=== PATIENT | female | born 1990 | race African-American/Black ===

== ENCOUNTER 2021-10-27 12:12 | Emergency (ER) | payer BC ==
--- OUTSIDE RECORDS SUMMARY | 2021-10-27 12:19 | XMS REPORT | Continuity of Care Document ---
:1990 Author Organization [facility] t Address [address] [place] [address] Care Team Providers Name Role Phone PCP, DOES NOT HAVE A Primary Care Physician Unavailable JOSHUA Attending Clinician Unavailable Joshua DIEZ Attending Clinician Doctor Unassigned, Name Attending Clinician Unavailable Attending Clinician Unavailable Singer SALINAS Attending Clinician TRA BUCHANAN Attending Clinician Unavailable Tra Kerr Attending Clinician Karuna NGUYEN Attending Clinician Unavailable Karuna Greco Attending Clinician Toya NIEVES Attending Clinician Unavailable Toya Nieves MD Attending Clinician Iraida ANTUNEZ Attending Clinician Unavailable Iraida Driver Attending Clinician Toya NIEVES Admitting Clinician Unavailable Payers Payer Name Policy Type Policy Number Effective Date Expiration Date Toya aragon MEDICAID PENDING PENDING 2021 00:00:00 [place] [id number] 2017 WOMEN 00:00:00 Problems Condition Condition Condition Status Onset Resolution Last Treating Co mments Source Name Details Category Date Date Treatment Clinician Date Disease Active 2010-05 Overview: Un frances delivery delivery 0-28 Formattin ity of delivered delivered 00:00: g of this [place] 00 note Medical might be Branch different from the original. 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 Utility Allergies, Adverse Reactions, Alerts Allergy Allergy Status Severity Reaction(s) Onset Inactive Treating Comm ents Source Name Type Date Date Clinician NO KNOWN Drug Active Univers ALLERGIE Class ity of [facility] Social History Social Habit Start Date Stop Date Quantity Comments Source Exposure to 2021-09-26 2021-10-06 Not sure [facility] SARS-CoV-2 (event) 00:00:00 02:55:00 Medica l Branch Tobacco use and 2021-01-14 2021-01-14 Never used [facility] exposure 00:00:00 00:00:00 [facility] Branch Sex Ass[birth year] At [birth year] [facility] 00:00:00 00:00:00 Medical Branch Smoking Status Start Date Stop Date Source Never smoker [facility] Medications Ordered Filled Start Stop Current Ordering Indication Dosage Frequency Signature Comments Components Source Medication Medication Date Date Medication? Clinician (SIG) Name Name cefTRIAXone 2021- No 1000mg 1,000 mg, Univers (ROCEPHIN) 10-06 IV ity of 1,000 mg in 10:45: 10:31 Piggyback, [place] NaCl 0.9% 00 :00 ONCE, 1 Medical (NS) 50 mL dose, On Bran h MINI-BAG 10/06/21 at 0545, Administer over 30 Minutes, 50 mL
Reas on for Anti-Infec tive: Documented Infection< br>Documen chad Infection Site: Urine<br&g t;Duration of Therapy: Other (see Comments) metoclopram 2021- No 10mg 10 mg, Uni vers daphne HCl 10-06 Slow IV ity of (REGLAN) 09:15: 08:32 Push, [place] injection 00 :00 ONCE, 1 Medical 10 mg dose, On Branch 10/06/21 at 0415, PETER NaCl 0.9% 2021- No 1000mL at 999 Uni vers (NS) bolus 5-18 05-18 mL/hr, ity of infusion 09:15: 10:31 1,000 mL, [place] as 1,000 mL 00 :00 IV Medical Infusion, Branch ONCE, 1 dose, On 10/06/21 at 0415, PETER metoclopram 0 Yes [id number] 10mg Take 1 Univers daphen HCl 10 -18 tablet by ity of mg tablet 00:00: mouth [place] 00 every 6 Medical (six) Branch hours. cephALEXin Yes [id number] 500mg Take 1 Univers (KEFLEX) 5-18 capsule by ity o f 500 mg 00:00: mouth 3 [place] capsule 00 (three) Medical times Branch daily. benzonatate 2021- No 100mg 100 mg, U nivers (TESSALON 08-16 Oral, ity of PERLES) 05:30: 04:23 ONCE, 1 [place] capsule 100 00 :00 dose, On Medi yossi mg Mon Branch 08/16/21 at 0030, Routine ipratropium 2021- No [id number] 3mL 3 mL, U nivers -albuteroL 08-16 Inhalation it y of (DUONEB) 05:00: 04:02 , ONCE, 1 [place] as 0.5 mg-3 00 :00 dose, On Medical mg(2.5 mg Mon base)/3 mL 08/16/21 at nebulizer 0000, solution 3 Routine mL chlorphenir Yes [id number] 4mg Take 1 U nivers amine 4 mg 3-27 tablet by ity of tablet 00:00: mouth [place] 00 every 6 Medical (six) Branch hours as needed for Allergies or Runny nose. calcium/mag 0 Yes [id number] 1{each} Take 1 Univers nesium/zinc 3-27 Each by ity o f (CALCIUM-MA 00:00: mouth [place] GNESUIUM-ZI 00 daily. Medica l GA) Branch 333-133-5 mg Tab benzonatate Yes [id number] 100mg Take 1 Univers 100 mg 3-27 capsule by ity of capsule 00:00: mouth 3 [place] 00 (three) Medical times Branch daily as needed for Cough. chlorphenir Yes [id number] 4mg Take 1 U nivers amine 4 mg 3-27 tablet by ity of tablet 00:00: mouth [place] 00 every 6 Medical (six) Branch hours as needed for Allergies or Runny nose. calcium/mag Yes [id number] 1{each} Take 1 Univers nesium/zinc 3-27 Each by ity o f (CALCIUM-MA 00:00: mouth [place] GNESUIUM-ZI 00 daily. Medica l [place]) Branch 333-133-5 mg Tab benzonatate Yes [id number] 100mg Take 1 Univers 100 mg 3-27 capsule by ity of capsule 00:00: mouth 3 [place] 00 (three) Medical times Branch daily as needed for Cough. chlorphenir Yes [id number] 4mg Take 1 U nivers amine 4 mg 3-27 tablet by ity of tablet 00:00: mouth [place] 00 every 6 Medical (six) Branch hours as needed for Allergies or Runny nose. calcium/mag Yes [id number] 1{each} Take 1 Univers nesium/zinc 3-27 Each by ity o f (CALCIUM-MA 00:00: mouth [place] GNESUIUM-ZI 00 daily. Medica l GA) Branch 333-133-5 mg Tab benzonatate Yes [id number] 100mg Take 1 Univers 100 mg 3-27 capsule by ity of capsule 00:00: mouth 3 [place] 00 (three) Medical times Branch daily as needed for Cough. vitamin 2021- Yes [id number] 1{tbl} Take 1 Un frances D3-folic 3-27 -27 tablet by ity o f acid 125 00:00: 04:59 mouth [place] mcg (5,000 00 :00 daily for Medi yossi unit)-1 mg 30 days. Branc h Tab baloxavir 2021- Yes [id number] 1{each} Take 1 Univers marboxiL 3-27 03-28 Each by ity of (XOFLUZA) 00:00: 04:59 mouth once [place] 80 mg Tab 00 :00 now for 1 Medic al dose. Branch nirmatrelvi 2021- No 3{tbl} Take 3 U nivers r-ritonavir 08-15 tablets by i ty of (PAXLOVID, 00:00: 00:00 mouth 2 [place] EUA,) 300 00 :00 (two) Medical mg (150 mg times Branch x 2)-100 mg daily. tablet azithromyci 2021- No 500mg 500 mg, U nivers n 07-18 Oral, ity of (ZITHROMAX) 06:45: 05:40 ONCE, 1 [place] tablet 500 00 :00 dose, On Medic al mg Sun Branch 07/18/21 at 0045, PETER
Re ason for Anti-Infec tive: Documented Infection< br>Documen chad Infection Site: Respirator y
Durat ion of Therapy: Other (see Comments) methylpredn 2021- No 125mg 125 mg, U nivers isolone sod 07-18 Intramuscu i ty of succ 06:30: 05:33 lar, ONCE, [place] (SOLU-MEDRO 00 :00 1 dose, On Me dical L) Sun Branch injection 07/18/21 at 125 mg 0030, STAT ipratropium No 3mL 3 mL, Univ ers -albuteroL 07-18 Inhalation it y of (DUONEB) 06:30: 05:33 , ONCE, 1 [place] as 0.5 mg-3 00 :00 dose, On Medical mg(2.5 mg Sun Branch base)/3 mL 07/18/21 at nebulizer 0030, solution 3 Routine mL ipratropium Yes [id number] .5mg Inhale 2.5 Univers 0.02 % 2-26 mL every 6 ity of nebulizer 00:00: (six) [place] solution 00 hours as Medical needed for Branch Wheezing or Shortness of Breath for up to 30 doses. azithromyci 0 Yes [id number] 250mg Take 1 Univers n - tablet by ity of (ZITHROMAX 00:00: mouth [place] Z-JAIDEN) 250 00 SEE-INSTRU Med ical mg tablet CTIONS. Branch Take 500 mg day 1, then 250 mg days 2 to 5. albuterol 2022-0 Yes [id number] 2.5mg Inhale 3 Univers 2.5 mg /3 2-26 mL every 4 ity of mL (0.083 00:00: (four) [place] %) 00 hours as Medical nebulizer needed for Bran ch solution Wheezing or Shortness of Breath. ipratropium 2022-0 Yes [id number] .5mg Inhale 2.5 Univers 0.02 % 2-26 mL every 6 ity of nebulizer 00:00: (six) [place] solution 00 hours as Medical needed for Branch Wheezing or Shortness of Breath for up to 30 doses. azithromyci 2022-0 Yes [id number] 250mg Take 1 Univers n 2-26 tablet by ity of (ZITHROMAX 00:00: mouth [place] Z-JAIDEN) 250 00 SEE-INSTRU Med ical mg tablet CTIONS. Branch Take 500 mg day 1, then 250 mg days 2 to 5. albuterol 2022-0 Yes [id number] 2.5mg Inhale 3 Univers 2.5 mg /3 2-26 mL every 4 ity of mL (0.083 00:00: (four) [place] %) 00 hours as Medical nebulizer needed for Bran ch solution Wheezing or Shortness of Breath. ipratropium 2022-0 Yes [id number] .5mg Inhale 2.5 Univers 0.02 % 2-26 mL every 6 ity of nebulizer 00:00: (six) [place] solution 00 hours as Medical needed for Branch Wheezing or Shortness of Breath for up to 30 doses. azithromyci 2022-0 Yes [id number] 250mg Take 1 Univers n 2-26 tablet by ity of (ZITHROMAX 00:00: mouth [place] Z-JAIDEN) 250 00 SEE-INSTRU Med ical mg tablet CTIONS. Branch Take 500 mg day 1, then 250 mg days 2 to 5. albuterol 2022-0 Yes [id number] 2.5mg Inhale 3 Univers 2.5 mg /3 2-26 mL every 4 ity of mL (0.083 00:00: (four) [place] %) 00 hours as Medical nebulizer needed for Bran ch solution Wheezing or Shortness of Breath. ipratropium 2022-0 Yes [id number] .5mg Inhale 2.5 Univers 0.02 % 2-26 mL every 6 ity of nebulizer 00:00: (six) [place] solution 00 hours as Medical needed for Branch Wheezing or Shortness of Breath for up to 30 doses. azithromyci 0 Yes [id number] 250mg Take 1 Univers n 2-26 tablet by ity of (ZITHROMAX 00:00: mouth [place] Z-JAIDEN) 250 00 SEE-INSTRU Med ical mg tablet CTIONS. Branch Take 500 mg day 1, then 250 mg days 2 to 5. albuterol 0 Yes [id number] 2.5mg Inhale 3 Univers 2.5 mg /3 2-26 mL every 4 ity of mL (0.083 00:00: (four) [place] %) 00 hours as Medical nebulizer needed for Bran ch solution Wheezing or Shortness of Breath. albuterol 2021- No 5mg 5 mg, [facility] 06-03 Inhalation i ty of 2.5 mg /3 08:00: 07:06 , ONCE, 1 [place] mL (0.083 00 :00 dose, On Medica l %) [place] Branch nebulizer 06/03/21 at solution 5 0200, STAT mg ipratropium 2021- No 3mL 3 mL, [facility] ers -albuteroL 06-03 Inhalation it y of (DUONEB) 07:00: 06:06 , ONCE, 1 [place] 0.5 mg-3 00 :00 dose, On Medical mg(2.5 mg [facility] Branch base)/3 mL 06/03/21 at nebulizer 0100, solution 3 Routine mL predniSONE 2021- No 10mg 10 mg, [facility] ers (DELTASONE) 06-03 Oral, ity of tablet 10 07:00: 06:02 ONCE, 1 [place] mg 00 :00 dose, On Medical [place] Branch 06/03/21 at 0100, PETER ipratropium 2021-0 Yes [id number] Use 1 U nivers 0.02 % 06-03 ampule of ity of nebulizer 00:00: solution [place] solution 00 with Medical albuterol Branch solution TID. ipratropium 2021-0 Yes [id number] Use 1 U nivers 0.02 % 1-13 ampule of ity of nebulizer 00:00: solution [place] solution 00 with Medical albuterol Branch solution TID. ipratropium 2021-0 Yes [id number] Use 1 U nivers 0.02 % 1-13 ampule of ity of nebulizer 00:00: solution [place] solution 00 with Medical albuterol Branch solution TID. ipratropium 2021-0 Yes [id number] Use 1 U nivers 0.02 % 1-13 ampule of ity of nebulizer 00:00: solution [place] solution 00 with Medical albuterol Branch solution TID. ipratropium 2021-0 Yes [id number] Use 1 U nivers 0.02 % 1-13 ampule of ity of nebulizer 00:00: solution [place] solution 00 with Medical albuterol Branch solution TID. predniSONE 2021-0 2022- No [id number] 20mg Take 1 Univers 20 mg -13 -18 tablet by ity of tablet 00:00: 05:59 mouth 2 [place] 00 :00 (two) Medical times Branch daily for 4 days. ipratropium 2021-0 Yes 3mL 3 mL, Unive rs -albuteroL 1-08 Inhalation ity of (DUONEB) 14:00: , QID, [place] 0.5 mg-3 00 First dose Medic al mg(2.5 mg on Sat Branch base)/3 mL 05/29/21 at nebulizer 0800, solution 3 Until mL Discontinu ed, Routine benzonatate 2021-0 Yes [id number] 200mg Take 1 Univers 200 mg 1-08 capsule by ity of capsule 00:00: mouth 3 [place] 00 (three) Medical times Branch daily as needed for Cough. albuterol 2021-0 Yes [id number] 2{puff} Inhale 2 Univers 90 1-08 Puffs ity of mcg/actuati 00:00: every 4 [place] on inhaler 00 (four) Medical hours as Branch needed for Wheezing or Shortness of Breath. albuterol 2021-0 Yes [id number] 2.5mg Inhale 3 Univers 2.5 mg /3 1-08 mL every 4 ity of mL (0.083 00:00: (four) [place] %) 00 hours. May Medical nebulizer also Branch solution nebulize one extra every 6 hours. benzonatate 2021-0 Yes [id number] 200mg Take 1 Univers 200 mg 1-08 capsule by ity of capsule 00:00: mouth 3 [place] 00 (three) Medical times Branch daily as needed for Cough. albuterol 2021-0 Yes [id number] 2{puff} Inhale 2 Univers 90 1-08 Puffs ity of mcg/actuati 00:00: every 4 [place] on inhaler 00 (four) Medical hours as Branch needed for Wheezing or Shortness of Breath. albuterol 2021-0 Yes [id number] 2.5mg Inhale 3 Univers 2.5 mg /3 1-08 mL every 4 ity of mL (0.083 00:00: (four) [place] %) 00 hours. May Medical nebulizer also Branch solution nebulize one extra every 6 hours. benzonatate 2021-0 Yes [id number] 200mg Take 1 Univers 200 mg 1-08 capsule by ity of capsule 00:00: mouth 3 [place] 00 (three) Medical times Branch daily as needed for Cough. albuterol 2021-0 Yes [id number] 2{puff} Inhale 2 Univers 90 1-08 Puffs ity of mcg/actuati 00:00: every 4 [place] on inhaler 00 (four) Medical hours as Branch needed for Wheezing or Shortness of Breath. albuterol 2021-0 Yes [id number] 2.5mg Inhale 3 Univers 2.5 mg /3 1-08 mL every 4 ity of mL (0.083 00:00: (four) [place] %) 00 hours. May Medical nebulizer also Branch solution nebulize one extra every 6 hours. albuterol 2021-0 Yes [id number] 2{puff} Inhale 2 Univers 90 1-08 Puffs ity of mcg/actuati 00:00: every 4 [place] on inhaler 00 (four) Medical hours as Branch needed for Wheezing or Shortness of Breath. albuterol 2021-0 Yes [id number] 2.5mg Inhale 3 Univers 2.5 mg /3 1-08 mL every 4 ity of mL (0.083 00:00: (four) [place] %) 00 hours. May Medical nebulizer also Branch solution nebulize one extra every 6 hours. albuterol 2021-0 Yes [id number] 2{puff} Inhale 2 Univers 90 1-08 Puffs ity of mcg/actuati 00:00: every 4 [place] on inhaler 00 (four) Medical hours as Branch needed for Wheezing or Shortness of Breath. albuterol 0 Yes [id number] 2.5mg Inhale 3 Univers 2.5 mg /3 1-08 mL every 4 ity of mL (0.083 00:00: (four) [place] %) 00 hours. May Medical nebulizer also Branch solution nebulize one extra every 6 hours. albuterol 2021- Yes [id number] 2{puff} Inhale 2 Univers 90 1-08 Puffs ity of mcg/actuati 00:00: every 4 [place] on inhaler 00 (four) Medical hours as Branch needed for Wheezing or Shortness of Breath. albuterol Yes [id number] 2.5mg Inhale 3 Univers 2.5 mg /3 1-08 mL every 4 ity of mL (0.083 00:00: (four) [place] %) 00 hours. May Medical nebulizer also Branch solution nebulize one extra every 6 hours. benzonatate 2- No [id number] 200mg Take 1 Univers 200 mg 05-29 capsule by ity of capsule 00:00: 00:00 mouth 3 [place] 00 :00 (three) Medical times Branch daily as needed for Cough. albuterol 2- No [id number] 2{puff} Inhale 2 Univers 90 1-08 01-08 Puffs ity of mcg/actuati 00:00: 00:00 every 4 [place] on inhaler 00 :00 (four) Medical hours as Branch needed for Wheezing or Shortness of Breath. albuterol 2021-0 2- No [id number] 2.5mg Inhale 3 Univers 2.5 mg /3 1-08 01-08 mL every 4 ity of mL (0.083 00:00: 00:00 (four) [place] %) 00 :00 hours. May Medical nebulizer also Branch solution nebulize one extra every 6 hours. benzonatate 2021-0 2- No [id number] 200mg Take 1 Univers 200 mg 05-29-08 capsule by ity of capsule 00:00: 00:00 mouth 3 [place] 00 :00 (three) Medical times Branch daily as needed for Cough. ondansetron 2020-05 4mg 4 mg, Univ ers (ZOFRAN-ODT 1-24 -24 Oral, ity of ) 16:45: 15:37 ONCE, 1 [place] disintegrat 00 :00 dose, On Medi yossi ing tablet Wed Branch 4 mg 04/14/21 at 1045, Routine ondansetron 2020-05 Yes [id number] 4mg Take 1 Univers 4 mg 1-24 tablet by ity of disintegrat 00:00: mouth [place] ing tablet 00 every 8 Medica l (eight) Branch hours as needed for Nausea and Vomiting (N/V). ondansetron 2020-05 Yes [id number] 4mg Take 1 Univers 4 mg 1-24 tablet by ity of disintegrat 00:00: mouth [place] ing tablet 00 every 8 Medica l (eight) Branch hours as needed for Nausea and Vomiting (N/V). ondansetron 2020-05 Yes [id number] 4mg Take 1 Univers 4 mg 1-24 tablet by ity of disintegrat 00:00: mouth [place] ing tablet 00 every 8 Medica l (eight) Branch hours as needed for Nausea and Vomiting (N/V). ondansetron 2020-05 Yes [id number] 4mg Take 1 Univers 4 mg 1-24 tablet by ity of disintegrat 00:00: mouth [place] ing tablet 00 every 8 Medica l (eight) Branch hours as needed for Nausea and Vomiting (N/V). ondansetron 2020-05 Yes [id number] 4mg Take 1 Univers 4 mg 1-24 tablet by ity of disintegrat 00:00: mouth [place] ing tablet 00 every 8 Medica l (eight) Branch hours as needed for Nausea and Vomiting (N/V). ondansetron 2020-05 Yes [id number] 4mg Take 1 Univers 4 mg 1-24 tablet by ity of disintegrat 00:00: mouth [place] ing tablet 00 every 8 Medica l (eight) Branch hours as needed for Nausea and Vomiting (N/V). ondansetron 2020-05 Yes [id number] 4mg Take 1 Univers 4 mg 1-24 tablet by ity of disintegrat 00:00: mouth [place] ing tablet 00 every 8 Medica l (eight) Branch hours as needed for Nausea and Vomiting (N/V). ibuprofen 2020-05 600mg 600 mg, Uni vers (IBU) 0-31 10- Oral, ity of tablet 600 22:45: 21:46 ONCE, 1 [place] mg 00 :00 dose, On Medical [place] Branch 03/21/21 at 1745, PETER amoxicillin 2020-05 No 500mg 500 mg, U nivers (TRIMOX) 0-31 03-21 Oral, ity of capsule 500 22:45: 21:46 ONCE, 1 [place] mg 00 :00 dose, On Medical [place] Branch 03/21/21 at 1745, PETER
Re ason for Anti-Infec tive: Documented Infection< br>Documen chad Infection Site: HEENT
D uration of Therapy: 10 days ibuprofen 2020-05 Yes [id number] 600mg Take 1 U nivers 600 mg 0-31 tablet by ity of tablet 00:00: mouth [place] 00 every 6 Medical (six) Branch hours as needed for Pain (scale 4-6). ibuprofen 2020-05 Yes [id number] 600mg Take 1 U nivers 600 mg 0-31 tablet by ity of tablet 00:00: mouth [place] 00 every 6 Medical (six) Branch hours as needed for Pain (scale 4-6). ibuprofen 2020-05 Yes [id number] 600mg Take 1 U nivers 600 mg 0-31 tablet by ity of tablet 00:00: mouth [place] 00 every 6 Medical (six) Branch hours as needed for Pain (scale 4-6). ibuprofen 2020-05 Yes [id number] 600mg Take 1 U nivers 600 mg 0-31 tablet by ity of tablet 00:00: mouth [place] 00 every 6 Medical (six) Branch hours as needed for Pain (scale 4-6). ibuprofen 2020-05 Yes [id number] 600mg Take 1 U nivers 600 mg 0-31 tablet by ity of tablet 00:00: mouth [place] 00 every 6 Medical (six) Branch hours as needed for Pain (scale 4-6). ibuprofen 2020-05 Yes [id number] 600mg Take 1 U nivers 600 mg 0-31 tablet by ity of tablet 00:00: mouth [place] 00 every 6 Medical (six) Branch hours as needed for Pain (scale 4-6). ibuprofen 2020-05 Yes [id number] 600mg Take 1 U nivers 600 mg 0-31 tablet by ity of tablet 00:00: mouth [place] 00 every 6 Medical (six) Branch hours as needed for Pain (scale 4-6). ibuprofen 2020-05 Yes [id number] 600mg Take 1 U nivers 600 mg 0-31 tablet by ity of tablet 00:00: mouth [place] 00 every 6 Medical (six) Branch hours as needed for Pain (scale 4-6). amoxicillin 2020-05- No [id number] 500mg Take 1 Univers 500 mg 0-31 11-11 capsule by ity of capsule 00:00: 05:59 mouth 3 [place] 00 :00 (three) Medical times Branch daily for 10 days. NaCl 0.9% 2020- No 1000mL at 999 Uni vers (NS) bolus 01-14-26 mL/hr, ity of infusion 18:15: 19:57 1,000 mL, [place] 1,000 mL 00 :00 IV Medical Piggyback, Branch ONCE, 1 dose, [place] 01/14/21 at 1315, STAT NaCl 0.9% 2020- No 1000mL at 999 Uni vers (NS) bolus 01-14-26 mL/hr, ity of infusion 18:15: 19:57 1,000 mL, [place] 1,000 mL 00 :00 IV Medical Piggyback, Branch ONCE, 1 dose, [place] 01/14/21 at 1315, STAT proMETHazin 2020- No 25mg 25 mg, IV Univers e 01-14 Piggyback, ity of (PHENERGAN) 17:30: 16:39 ONCE, 1 [place] 25 mg in 00 :00 dose, [place] Medica l NaCl 0.9% 01/14/21 at Bran ch (NS) 50 mL 1230, 50 piggyback mL NaCl 0.9% 2020- No 1000mL at 999 Uni vers (NS) bolus 01-14-26 mL/hr, ity of infusion 17:30: 19:57 1,000 mL, [place] 1,000 mL 00 :00 IV Medical Piggyback, Branch ONCE, 1 dose, [place] 01/14/21 at 1230, STAT proMETHazin 2020- No 25mg 25 mg, IV Univers e 01-14 Piggyback, ity of (PHENERGAN) 17:30: 16:39 ONCE, 1 [place] 25 mg in 00 :00 dose, [place] Medica l NaCl 0.9% 01/14/21 at Bran ch (NS) 50 mL 1230, 50 piggyback mL NaCl 0.9% 2020- No 1000mL at 999 Uni vers (NS) bolus 01-14 mL/hr, ity of infusion 17:30: 19:57 1,000 mL, [place] 1,000 mL 00 :00 IV Medical Piggyback, Branch ONCE, 1 dose, [place] 01/14/21 at 1230, STAT ondansetron 2020- No 4mg 4 mg, [facility] ers (ZOFRAN-ODT 01-14 Oral, ity of ) 16:15: 15:23 ONCE, 1 [place] disintegrat 00 :00 dose, [place] Med ical ing tablet 01/14/21 at [facility] 4 mg 1115, Routine ondansetron 2020- No 4mg 4 mg, [facility] ers (ZOFRAN-ODT 01-14 Oral, ity of ) 16:15: 15:23 ONCE, 1 [place] disintegrat 00 :00 dose, [place] Med ical ing tablet 01/14/21 at [facility] 4 mg 1115, Routine albuterol Yes [id number] 2{puff} Inhale 2 Univers 90 8- Puffs ity of mcg/actuati 00:00: every 4 [place] on inhaler 00 (four) Medical hours as Branch needed for Wheezing or Shortness of Breath. benzonatate Yes [id number] 100mg Take 1 Univers 100 mg 8- capsule by ity of capsule 00:00: mouth 3 [place] 00 (three) Medical times Branch daily as needed for Cough. dextrometho Yes [id number] 10mL Take 10 mL Univers rphan-guaif 8-26 by mouth ity of enesin 00:00: every 6 [place] 10-100 mg/5 00 (six) Medical mL solution hours as Bran ch needed for Cough. ondansetron Yes [id number] 4mg Take 1 Univers 4 mg 8-26 tablet by ity of disintegrat 00:00: mouth [place] ing tablet 00 every 8 Medica l (eight) Branch hours as needed for Nausea and Vomiting (N/V). albuterol Yes [id number] 2{puff} Inhale 2 Univers 90 8-26 Puffs ity of mcg/actuati 00:00: every 4 [place] on inhaler 00 (four) Medical hours as Branch needed for Wheezing or Shortness of Breath. benzonatate Yes [id number] 100mg Take 1 Univers 100 mg 8-26 capsule by ity of capsule 00:00: mouth 3 [place] 00 (three) Medical times Branch daily as needed for Cough. dextrometho Yes [id number] 10mL Take 10 mL Univers rphan-guaif 8-26 by mouth ity of enesin 00:00: every 6 [place] 10-100 mg/5 00 (six) Medical mL solution hours as Bran ch needed for Cough. proMETHazin Yes [id number] 25mg Take 1 Univers e 25 mg 8-26 tablet by ity of tablet 00:00: mouth [place] 00 every 4 Medical (four) Branch hours as needed for Nausea and Vomiting (N/V). proMETHazin Yes [id number] 25mg Insert 1 Univers e 25 mg 8-26 Suppositor ity of suppository 00:00: y into [place] 00 rectum Medical every 4 Branch (four) hours as needed for Nausea and Vomiting (N/V) or N/V unresponsi ve to oral antiemetic s. albuterol Yes [id number] 2{puff} Inhale 2 Univers 90 8-26 Puffs ity of mcg/actuati 00:00: every 4 [place] on inhaler 00 (four) Medical hours as Branch needed for Wheezing or Shortness of Breath. benzonatate 0 Yes [id number] 100mg Take 1 Univers 100 mg 8-26 capsule by ity of capsule 00:00: mouth 3 [place] 00 (three) Medical times Branch daily as needed for Cough. dextrometho 0 Yes [id number] 10mL Take 10 mL Univers rphan-guaif 8-26 by mouth ity of enesin 00:00: every 6 [place] 10-100 mg/5 00 (six) Medical mL solution hours as Bran ch needed for Cough. ondansetron Yes [id number] 4mg Take 1 Univers 4 mg 8-26 tablet by ity of disintegrat 00:00: mouth [place] ing tablet 00 every 8 Medica l (eight) Branch hours as needed for Nausea and Vomiting (N/V). albuterol Yes [id number] 2{puff} Inhale 2 Univers 90 8-26 Puffs ity of mcg/actuati 00:00: every 4 [place] on inhaler 00 (four) Medical hours as Branch needed for Wheezing or Shortness of Breath. benzonatate 0 Yes [id number] 100mg Take 1 Univers 100 mg 8-26 capsule by ity of capsule 00:00: mouth 3 [place] 00 (three) Medical times Branch daily as needed for Cough. dextrometho 0 Yes [id number] 10mL Take 10 mL Univers rphan-guaif 8-26 by mouth ity of enesin 00:00: every 6 [place] 10-100 mg/5 00 (six) Medical mL solution hours as Bran ch needed for Cough. proMETHazin Yes [id number] 25mg Take 1 Univers e 25 mg 8-26 tablet by ity of tablet 00:00: mouth [place] 00 every 4 Medical (four) Branch hours as needed for Nausea and Vomiting (N/V). proMETHazin 0 Yes [id number] 25mg Insert 1 Univers e 25 mg 8-26 Suppositor ity of suppository 00:00: y [place] rect[place] [facility] every 4 Branch (four) hours as needed for Nausea and Vomiting (N/V) or N/V unresponsi ve to oral antiemetic s. albuterol Yes [id number] 2{puff} Inhale 2 [facility] 90 8-26 Puffs ity of mcg/actuati 00:00: every 4 [place] as on inhaler 00 (four) Medical hours as Branch needed for Wheezing or Shortness of Breath. benzonatate 0 Yes [id number] 100mg Take 1 [facility] 100 mg 8-26 capsule by ity of capsule 00:00: mouth 3 [place] 00 (three) Medical times Branch daily as needed for Cough. dextrometho Yes [id number] 10mL Take 10 mL [facility] rphan-guaif 8-26 by mouth ity of enesin 00:00: every 6 [place] 10-100 mg/5 00 (six) Medical mL solution hours as Bran ch needed for Cough. albuterol Yes [id number] 2{puff} Inhale 2 [facility] 90 8-26 Puffs ity of mcg/actuati 00:00: every 4 [place] as on inhaler 00 (four) Medical hours as Branch needed for Wheezing or Shortness of Breath. benzonatate Yes [id number] 100mg Take 1 [facility] 100 mg 8-26 capsule by ity of capsule 00:00: mouth 3 [place] 00 (three) Medical times Branch daily as needed for Cough. dextrometho Yes [id number] 10mL Take 10 mL [facility] rphan-guaif 8-26 by mouth ity of enesin 00:00: every 6 [place] 10-100 mg/5 00 (six) Medical mL solution hours as Bran ch needed for Cough. proMETHazin Yes [id number] 25mg Take 1 [facility] e 25 mg 8-26 tablet by ity of tablet 00:00: mouth [place] 00 every 4 Medical (four) Branch hours as needed for Nausea and Vomiting (N/V). proMETHazin Yes [id number] 25mg Insert 1 [facility] e 25 mg 8-26 Suppositor ity of suppository 00:00: y [place] rectum Medical every 4 Branch (four) hours as needed for Nausea and Vomiting (N/V) or N/V unresponsi ve to oral antiemetic s. albuterol Yes [id number] 2{puff} Inhale 2 [facility] 90 8-26 Puffs ity of mcg/actuati 00:00: every 4 [place] as on inhaler 00 (four) Medical hours as Branch needed for Wheezing or Shortness of Breath. benzonatate 0 Yes [id number] 100mg Take 1 [facility] 100 mg 8-26 capsule by ity of capsule 00:00: mouth 3 [place] 00 (three) Medical times Branch daily as needed for Cough. dextrometho Yes [id number] 10mL Take 10 mL [facility] rphan-guaif 8-26 by mouth ity of enesin 00:00: every 6 [place] 10-100 mg/5 00 (six) Medical mL solution hours as Bran ch needed for Cough. albuterol Yes [id number] 2{puff} Inhale 2 [facility] 90 8-26 Puffs ity of mcg/actuati 00:00: every 4 [place] as on inhaler 00 (four) Medical hours as Branch needed for Wheezing or Shortness of Breath. benzonatate Yes [id number] 100mg Take 1 [facility] 100 mg 8-26 capsule by ity of capsule 00:00: mouth 3 [place] 00 (three) Medical times Branch daily as needed for Cough. dextrometho 0 Yes [id number] 10mL Take 10 mL [facility] rphan-guaif 8-26 by mouth ity of enesin 00:00: every 6 [place] 10-100 mg/5 00 (six) Medical mL solution hours as Bran ch needed for Cough. proMETHazin Yes [id number] 25mg Take 1 [facility] e 25 mg 8-26 tablet by ity of tablet 00:00: mouth [place] 00 every 4 Medical (four) Branch hours as needed for Nausea and Vomiting (N/V). proMETHazin Yes [id number] 25mg Insert 1 [facility] e 25 mg 8-26 Suppositor ity of suppository 00:00: y [place] rectum Medical every 4 Branch (four) hours as needed for Nausea and Vomiting (N/V) or N/V unresponsi ve to oral antiemetic s. albuterol Yes [id number] 2{puff} Inhale 2 [facility] 90 8-26 Puffs ity of mcg/actuati 00:00: every 4 [place] as on inhaler 00 (four) Medical hours as Branch needed for Wheezing or Shortness of Breath. benzonatate Yes [id number] 100mg Take 1 [facility] 100 mg 8-26 capsule by ity of capsule 00:00: mouth 3 [place] 00 (three) Medical times Branch daily as needed for Cough. dextrometho 0 Yes [id number] 10mL Take 10 mL [facility] rphan-guaif 8-26 by mouth ity of enesin 00:00: every 6 [place] 10-100 mg/5 00 (six) Medical mL solution hours as Bran ch needed for Cough. albuterol 0 Yes [id number] 2{puff} Inhale 2 [facility] 90 8-26 Puffs ity of mcg/actuati 00:00: every 4 [place] as on inhaler 00 (four) Medical hours as Branch needed for Wheezing or Shortness of Breath. benzonatate 0 Yes [id number] 100mg Take 1 [facility] 100 mg 8-26 capsule by ity of capsule 00:00: mouth 3 [place] 00 (three) Medical times Branch daily as needed for Cough. dextrometho 2020-0 Yes [id number] 10mL Take 10 mL [facility] rphan-guaif 8-26 by mouth ity of enesin 00:00: every 6 [place] 10-100 mg/5 00 (six) Medical mL solution hours as Bran ch needed for Cough. proMETHazin Yes [id number] 25mg Take 1 [facility] e 25 mg 8-26 tablet by ity of tablet 00:00: mouth 00 every 4 Medical (four) Branch hours as needed for Nausea and Vomiting (N/V). proMETHazin 0 Yes [id number] 25mg Insert 1 [facility] e 25 mg 8-26 Suppositor ity of suppository 00:00: y [place] 00 rectum Medical every 4 Branch (four) hours as needed for Nausea and Vomiting (N/V) or N/V unresponsi ve to oral antiemetic s. albuterol 0 Yes [id number] 2{puff} Inhale 2 [facility] 90 8-26 Puffs ity of mcg/actuati 00:00: every 4 [place] as on inhaler 00 (four) Medical hours as Branch needed for Wheezing or Shortness of Breath. benzonatate 0 Yes [id number] 100mg Take 1 [facility] 100 mg 8-26 capsule by ity of capsule 00:00: mouth 3 00 (three) Medical times Branch daily as needed for Cough. dextrometho 2020-0 Yes [id number] 10mL Take 10 mL [facility] rphan-guaif 8-26 by mouth ity of enesin 00:00: every 6 [place] 10-100 mg/5 00 (six) Medical mL solution hours as Bran ch needed for Cough. albuterol 0 Yes [id number] 2{puff} Inhale 2 [facility] 90 8-26 Puffs ity of mcg/actuati 00:00: every 4 [place] as on inhaler 00 (four) Medical hours as Branch needed for Wheezing or Shortness of Breath. benzonatate Yes [id number] 100mg Take 1 [facility] 100 mg 8-26 capsule by ity of capsule 00:00: mouth 3 [place] 00 (three) Medical times Branch daily as needed for Cough. dextrometho Yes [id number] 10mL Take 10 mL [facility] rphan-guaif 8-26 by mouth ity of enesin 00:00: every 6 [place] 10-100 mg/5 00 (six) Medical mL solution hours as Bran ch needed for Cough. proMETHazin Yes [id number] 25mg Take 1 [facility] e 25 mg 8-26 tablet by ity of tablet 00:00: mouth [place] 00 every 4 Medical (four) Branch hours as needed for Nausea and Vomiting (N/V). proMETHazin Yes [id number] 25mg Insert 1 [facility] e 25 mg 8-26 Suppositor ity of suppository 00:00: y [place] 00 rectum Medical every 4 Branch (four) hours as needed for Nausea and Vomiting (N/V) or N/V unresponsi ve to oral antiemetic s. albuterol Yes [id number] 2{puff} Inhale 2 [facility] 90 8-26 Puffs ity of mcg/actuati 00:00: every 4 [place] as on inhaler 00 (four) Medical hours as Branch needed for Wheezing or Shortness of Breath. dextrometho Yes [id number] 10mL Take 10 mL [facility] rphan-[facility]aif 8-26 by mouth ity of enesin 00:00: every 6 [place] 10-100 mg/5 00 (six) Medical mL solution hours as Bran ch needed for Cough. albuterol Yes [id number] 2{puff} Inhale 2 [facility] 90 8-26 Puffs ity of mcg/actuati 00:00: every 4 [place] as on inhaler 00 (four) Medical hours as Branch needed for Wheezing or Shortness of Breath. dextrometho Yes [id number] 10mL Take 10 mL [facility] rphan-guaif 8-26 by mouth ity of enesin 00:00: every 6 [place] 10-100 mg/5 00 (six) Medical mL solution hours as Bran ch needed for Cough. proMETHazin Yes [id number] 25mg Take 1 [facility] e 25 mg 8-26 tablet by ity of tablet 00:00: mouth [place] 00 every 4 Medical (four) Branch hours as needed for Nausea and Vomiting (N/V). proMETHazin Yes [id number] 25mg Insert 1 [facility] e 25 mg 8-26 Suppositor ity of suppository 00:00: y [place] 00 rectum Medical every 4 Branch (four) hours as needed for Nausea and Vomiting (N/V) or N/V unresponsi ve to oral antiemetic s. albuterol Yes [id number] 2{puff} Inhale 2 [facility] 90 8-26 Puffs ity of mcg/actuati 00:00: every 4 [place] as on inhaler 00 (four) Medical hours as Branch needed for Wheezing or Shortness of Breath. dextrometho Yes [id number] 10mL Take 10 mL [facility] rphan-[facility]aif 8-26 by mouth ity of enesin 00:00: every 6 [place] 10-100 mg/5 00 (six) Medical mL solution hours as Bran ch needed for Cough. albuterol Yes [id number] 2{puff} Inhale 2 [facility] 90 8-26 Puffs ity of mcg/actuati 00:00: every 4 [place] as on inhaler 00 (four) Medical hours as Branch needed for Wheezing or Shortness of Breath. dextrometho Yes [id number] 10mL Take 10 mL [facility] rphan-[facility]aif 8-26 by mouth ity of enesin 00:00: every 6 [place] 10-100 mg/5 00 (six) Medical mL solution hours as Bran ch needed for Cough. proMETHazin Yes [id number] 25mg Take 1 [facility] e 25 mg 8-26 tablet by ity of tablet 00:00: mouth [place] 00 every 4 Medical (four) Branch hours as needed for Nausea and Vomiting (N/V). proMETHazin Yes [id number] 25mg Insert 1 [facility] e 25 mg 8-26 Suppositor ity of suppository 00:00: y [place] 00 rectum Medical every 4 Branch (four) hours as needed for Nausea and Vomiting (N/V) or N/V unresponsi ve to oral antiemetic s. albuterol Yes [id number] 2{puff} Inhale 2 [facility] 90 8-26 Puffs ity of mcg/actuati 00:00: every 4 [place] as on inhaler 00 (four) Medical hours as Branch needed for Wheezing or Shortness of Breath. benzonatate Yes [id number] 100mg Take 1 [facility] 100 mg 8-26 capsule by ity of capsule 00:00: mouth 3 [place] 00 (three) Medical times Branch daily as needed for Cough. albuterol Yes [id number] 2{puff} Inhale 2 [facility] 90 8-26 Puffs ity of mcg/actuati 00:00: every 4 [place] as on inhaler 00 (four) Medical hours as Branch needed for Wheezing or Shortness of Breath. dextrometho Yes [id number] 10mL Take 10 mL [facility] rphan-guaif 8-26 by mouth ity of enesin 00:00: every 6 [place] 10-100 mg/5 00 (six) Medical mL solution hours as Bran ch needed for Cough. dextrometho Yes [id number] 10mL Take 10 mL [facility] rphan-[facility]aif 8-26 by mouth ity of enesin 00:00: every 6 [place] 10-100 mg/5 00 (six) Medical mL solution hours as Bran ch needed for Cough. albuterol Yes [id number] 2{puff} Inhale 2 [facility] 90 8-26 Puffs ity of mcg/actuati 00:00: every 4 [place] as on inhaler 00 (four) Medical hours as Branch needed for Wheezing or Shortness of Breath. dextrometho Yes [id number] 10mL Take 10 mL [facility] rphan-[facility]aif 8-26 by mouth ity of enesin 00:00: every 6 [place] 10-100 mg/5 00 (six) Medical mL solution hours as Bran ch needed for Cough. proMETHazin Yes [id number] 25mg Take 1 [facility] e 25 mg 8-26 tablet by ity of tablet 00:00: mouth [place] 00 every 4 Medical (four) Branch hours as needed for Nausea and Vomiting (N/V). proMETHazin Yes [id number] 25mg Insert 1 [facility] e 25 mg 8-26 Suppositor ity of suppository 00:00: y [place] 00 rectum Medical every 4 Branch (four) hours as needed for Nausea and Vomiting (N/V) or N/V unresponsi ve to oral antiemetic s. ondansetron Yes [id number] 4mg Take 1 [facility] 4 mg 8-26 tablet by ity of disintegrat 00:00: mouth [place] ing tablet 00 every 8 Medica l (eight) Branch hours as needed for Nausea and Vomiting (N/V). albuterol Yes [id number] 2{puff} Inhale 2 [facility] 90 8-26 Puffs ity of mcg/actuati 00:00: every 4 [place] as on inhaler 00 (four) Medical hours as Branch needed for Wheezing or Shortness of Breath. benzonatate Yes [id number] 100mg Take 1 [facility] 100 mg 8-26 capsule by ity of capsule 00:00: mouth 3 [place] 00 (three) Medical times Branch daily as needed for Cough. dextrometho 0 Yes [id number] 10mL Take 10 mL [facility] rphan-guaif 8-26 by mouth ity of enesin 00:00: every 6 [place] 10-100 mg/5 00 (six) Medical mL solution hours as Bran ch needed for Cough. proMETHazin Yes [id number] 25mg Take 1 [facility] e 25 mg 8-26 tablet by ity of tablet 00:00: mouth [place] 00 every 4 Medical (four) Branch hours as needed for Nausea and Vomiting (N/V). proMETHazin 0 Yes [id number] 25mg Insert 1 [facility] e 25 mg 8-26 Suppositor ity of suppository 00:00: y [place] 00 rectum Medical every 4 Branch (four) hours as needed for Nausea and Vomiting (N/V) or N/V unresponsi ve to oral antiemetic s. benzonatate 0 2022- No [id number] 100mg Take 1 [facility] 100 mg 8-26 03-27 capsule by ity of capsule 00:00: 00:00 mouth 3 [place] 00 :00 (three) Medical times Branch daily as needed for Cough. benzonatate 2021- No [id number] 100mg Take 1 [facility] 100 mg 8-26 03-27 capsule by ity of capsule 00:00: 00:00 mouth 3 [place] 00 :00 (three) Medical times Branch daily as needed for Cough. ondansetron 2020- No [id number] 4mg Take 1 [facility] 4 mg 8-26 11-24 tablet by ity of disintegrat 00:00: 00:00 [place] tablet 00 :00 every 8 Medica l (eight) Branch hours as needed for Nausea and Vomiting (N/V). proMETHazin Yes [id number] 25mg Take 1 [facility] e 25 mg 6-11 tablet by ity of tablet 00:00: mouth [place] 00 every 6 Medical (six) Branch hours as needed for N/V unresponsi ve to Ondansetro n. ondansetron Yes [id number] 4mg Take 1 [facility] 4 mg 6-11 tablet by ity of disintegrat 00:00: mouth [place] ing tablet 00 every 8 Medica l (eight) Branch hours as needed for Nausea and Vomiting (N/V). dicyclomine Yes [id number] 20mg Take 1 [facility] (BENTYL) 20 6-11 tablet by ity of mg tablet 00:00: mouth 4 [place] 00 (four) Medical times Branch daily. proMETHazin Yes [id number] 25mg Take 1 [facility] e 25 mg 6-11 tablet by ity of tablet 00:00: mouth [place] 00 every 6 Medical (six) Branch hours as needed for N/V unresponsi ve to Ondansetro n. ondansetron Yes [id number] 4mg Take 1 [facility] 4 mg 6-11 tablet by ity of disintegrat 00:00: mouth [place] ing tablet 00 every 8 Medica l (eight) Branch hours as needed for Nausea and Vomiting (N/V). dicyclomine 2018- Yes [id number] 20mg Take 1 [facility] (BENTYL) 20 6-11 tablet by ity of mg tablet 00:00: mouth 4 [place] 00 (four) Medical times Branch daily. proMETHazin Yes [id number] 25mg Take 1 [facility] e 25 mg 6-11 tablet by ity of tablet 00:00: mouth [place] 00 every 6 Medical (six) Branch hours as needed for N/V unresponsi ve to Ondansetro n. ondansetron 2018-0 Yes [id number] 4mg Take 1 [facility] 4 mg 6-11 tablet by ity of disintegrat 00:00: mouth [place] ing tablet 00 every 8 Medica l (eight) Branch hours as needed for Nausea and Vomiting (N/V). dicyclomine 2019-0 Yes [id number] 20mg Take 1 [facility] (BENTYL) 20 6-11 tablet by ity of mg tablet 00:00: mouth 4 [place] (four) Medical times Branch daily. proMETHazin 0 Yes [id number] 25mg Take 1 [facility] e 25 mg 6-11 tablet by ity of tablet 00:00: mouth [place] 00 every 6 Medical (six) Branch hours as needed for N/V unresponsi ve to Ondansetro n. dicyclomine 2018-0 Yes [id number] 20mg Take 1 [facility] (BENTYL) 20 6-11 tablet by ity of mg tablet 00:00: mouth [place] (four) Medical times Branch daily. proMETHazin 2018-0 Yes [id number] 25mg Take 1 [facility] e 25 mg 6-11 tablet by ity of tablet 00:00: mouth [place] 00 every 6 Medical (six) Branch hours as needed for N/V unresponsi ve to Ondansetro n. dicyclomine 2018-0 Yes [id number] 20mg Take 1 [facility] (BENTYL) 20 6-11 tablet by ity of mg tablet 00:00: mouth [address] [place] [address] (four) Medical times Branch daily. proMETHazin 2019-0 Yes [id number] 25mg Take 1 [facility] e 25 mg 6-11 tablet by ity of tablet 00:00: mouth [place] 00 every 6 Medical (six) Branch hours as needed for N/V unresponsi ve to Ondansetro n. dicyclomine 2019-0 Yes [id number] 20mg Take 1 [facility] (BENTYL) 20 6-11 tablet by ity of mg tablet 00:00: mouth 4 [place] (four) Medical times Branch daily. proMETHazin 2019-0 Yes [id number] 25mg Take 1 [facility] e 25 mg 6-11 tablet by ity of tablet 00:00: mouth [place] 00 every 6 Medical (six) Branch hours as needed for N/V unresponsi ve to Ondansetro n. dicyclomine 2019-0 Yes [id number] 20mg Take 1 [facility] (BENTYL) 20 6-11 tablet by ity of mg tablet 00:00: mouth 4 [place] 00 (four) Medical times Branch daily. proMETHazin 2019-0 Yes [id number] 25mg Take 1 [facility] e 25 mg 6-11 tablet by ity of tablet 00:00: mouth [place] 00 every 6 Medical (six) Branch hours as needed for N/V unresponsi ve to Ondansetro n. dicyclomine 2019-0 Yes [id number] 20mg Take 1 [facility] (BENTYL) 20 6-11 tablet by ity of mg tablet 00:00: mouth 4 [place] 00 (four) Medical times Branch daily. dicyclomine 2018-0 Yes [id number] 20mg Take 1 [facility] (BENTYL) 20 6-11 tablet by ity of mg tablet 00:00: mouth 4 [place] 00 (four) Medical times Branch daily. proMETHazin 2018-0 Yes [id number] 25mg Take 1 [facility] e 25 mg 6-11 tablet by ity of tablet 00:00: mouth [place] 00 every 6 Medical (six) Branch hours as needed for N/V unresponsi ve to Ondansetro n. proMETHazin 2018-0 Yes [id number] 25mg Take 1 [facility] e 25 mg 6-11 tablet by ity of tablet 00:00: mouth [place] 00 every 6 Medical (six) Branch hours as needed for N/V unresponsi ve to Ondansetro n. ondansetron 2018-0 Yes [id number] 4mg Take 1 [facility] 4 mg 6-11 tablet by ity of disintegrat 00:00: mouth [place] ing tablet 00 every 8 Medica l (eight) Branch hours as needed for Nausea and Vomiting (N/V). dicyclomine 2019-0 Yes [id number] 20mg Take 1 [facility] (BENTYL) 20 6-11 tablet by ity of mg tablet 00:00: mouth 4 [place] 00 (four) Medical times Branch daily. proMETHazin 2019-0 Yes [id number] 25mg Take 1 [facility] e 25 mg 6-11 tablet by ity of tablet 00:00: mouth [place] 00 every 6 Medical (six) Branch hours as needed for N/V unresponsi ve to Ondansetro n. dicyclomine 2018- Yes [id number] 20mg Take 1 [facility] (BENTYL) 20 6-11 tablet by ity of mg tablet 00:00: mouth 4 [place] 00 (four) Medical times Branch daily. proMETHazin 2018- Yes [id number] 25mg Take 1 [facility] e 25 mg 6-11 tablet by ity of tablet 00:00: mouth [place] 00 every 6 Medical (six) Branch hours as needed for N/V unresponsi ve to Ondansetro n. ondansetron Yes [id number] 4mg Take 1 [facility] 4 mg 6-11 tablet by ity of disintegrat 00:00: mouth [place] ing tablet 00 every 8 Medica l (eight) Branch hours as needed for Nausea and Vomiting (N/V). dicyclomine Yes [id number] 20mg Take 1 [facility] (BENTYL) 20 6-11 tablet by ity of mg tablet 00:00: mouth 4 [place] 00 (four) Medical times Branch daily. ondansetron 2020- No [id number] 4mg Take 1 [facility] 4 mg 6-11 11-24 tablet by ity of disintegrat 00:00: 00:00 [place] tablet 00 :00 every 8 Medica l (eight) Branch hours as needed for Nausea and Vomiting (N/V). amoxicillin 2017- Yes 1{tbl} Take 1 [facility] -clavulanat 2-05 tablet by ity of e 875-125 00:00: mouth [place] mg per 00 every 12 Medical tablet (twelve) Branch hours. amoxicillin 2018-0 Yes 1{tbl} Take 1 [facility] -clavulanat 2-05 tablet by ity of e 875-125 00:00: mouth [place] mg per 00 every 12 Medical tablet (twelve) Branch hours. amoxicillin 2018-0 Yes 1{tbl} Take 1 Un [facility] -clavulanat 2-05 tablet by ity of e 875-125 00:00: mouth [place] mg per 00 every 12 Medical tablet (twelve) Branch hours. amoxicillin 2018-0 Yes 1{tbl} Take 1 Un [facility] -clavulanat 2-05 tablet by ity of e 875-125 00:00: mouth [place] mg per 00 every 12 Medical tablet (twelve) Branch hours. amoxicillin 2018-0 Yes 1{tbl} Take 1 Un [facility] -clavulanat 2-05 tablet by ity of e 875-125 00:00: mouth [place] mg per 00 every 12 Medical tablet (twelve) Branch hours. amoxicillin 2018-0 Yes 1{tbl} Take 1 Un frances -clavulanat 2-05 tablet by ity of e 875-125 00:00: mouth [place] mg per 00 every 12 Medical tablet (twelve) Branch hours. amoxicillin 2018-0 Yes 1{tbl} Take 1 Un frances -clavulanat 2-05 tablet by ity of e 875-125 00:00: mouth [place] mg per 00 every 12 Medical tablet (twelve) Branch hours. amoxicillin 2018-0 Yes 1{tbl} Take 1 Un frances -clavulanat 2-05 tablet by ity of e 875-125 00:00: mouth [place] mg per 00 every 12 Medical tablet (twelve) Branch hours. amoxicillin 2018-0 Yes 1{tbl} Take 1 Un frances -clavulanat 2-05 tablet by ity of e 875-125 00:00: mouth [place] mg per 00 every 12 Medical tablet (twelve) Branch hours. amoxicillin 2018-0 Yes 1{tbl} Take 1 Un frances -clavulanat 2-05 tablet by ity of e 875-125 00:00: mouth [place] mg per 00 every 12 Medical tablet (twelve) Branch hours. amoxicillin 2018-0 Yes 1{tbl} Take 1 Un fr[facility] -clavulanat 2-05 tablet by ity of e 875-125 00:00: mouth [place] mg per 00 every 12 Medical tablet (twelve) Branch hours. amoxicillin 2018-0 Yes 1{tbl} Take 1 Un frances -clavulanat 2-05 tablet by ity of e 875-125 00:00: mouth [place] mg per 00 every 12 Medical tablet (twelve) Branch hours. 2010-05 Yes 1{tbl} Take 1 Tab U nivers vitamin 0-30 by mouth ity of w/FA 00:00: daily. [place] ( 00 Medical RX OR Branch GENERIC EQUIVALENT) tablet docusate 2010-05 Yes 240mg Take 1 Cap Un frances calcium 0-30 by mouth ity of (SURFAK) 00:00: once daily [place] as 240 mg 00 as needed Medical capsule for Branch Constipati on. ferrous 2010-05 Yes 325mg Take 1 Tab [facility] vers sulfate 325 0-30 by mouth 2 it y of mg (65 mg 00:00: (two) [place] iron) 00 times Medical tablet daily. Branch hydrocodone 2010-05 Yes 1{tbl} Take 1-2 [facility] -acetaminop 0-30 Tabs by ity o f hen (NORCO 00:00: mouth [place] 5) 5-325 mg 00 every 6 Medic al tablet (six) Branch hours as needed for Pain. Not to be administer ed at the same time as [place] 10 if ordered. For patients < 12 years recommend do not exceed 5 doses or 2.6 gm in 24 hours totals for all acetaminop hen containing products. For adults with normal hepatic function recommend do not exceed 4 grams in 24 hours for all acetaminop hen containing products. 2010-05 Yes 1{tbl} Take 1 Tab U nivers vitamin 0-30 by mouth ity of w/FA 00:00: daily. [place] ( 00 Medical RX OR Branch GENERIC EQUIVALENT) tablet docusate 2010-05 Yes 240mg Take 1 Cap Un frances calcium 0-30 by mouth ity of (SURFAK) 00:00: once daily [place] as 240 mg 00 as needed Medical capsule for Branch Constipati on. ferrous 2010-05 Yes 325mg Take 1 Tab [facility] vers sulfate 325 0-30 by mouth 2 it y of mg (65 mg 00:00: (two) [place] iron) 00 times Medical tablet daily. Branch hydrocodone 2010-05 Yes 1{tbl} Take 1-2 [facility] -acetaminop 0-30 Tabs by ity o f hen (NORCO 00:00: mouth [place] 5) 5-325 mg 00 every 6 Medic al tablet (six) Branch hours as needed for Pain. Not to be administer ed at the same time as [place] 10 if ordered. For patients < 12 years recommend do not exceed 5 doses or 2.6 gm in 24 hours totals for all acetaminop hen containing products. For adults with normal hepatic function recommend do not exceed 4 grams in 24 hours for all acetaminop hen containing products. 2010-05 Yes 1{tbl} Take 1 Tab U nivers vitamin 0-30 by mouth ity of w/FA 00:00: daily. [place] ( 00 Medical RX OR Branch GENERIC EQUIVALENT) tablet docusate 2010-05 Yes 240mg Take 1 Cap Un frances calcium 0-30 by mouth ity of (SURFAK) 00:00: once daily [place] as 240 mg 00 as needed Medical capsule for Branch Constipati on. ferrous 2010-05 Yes 325mg Take 1 Tab [facility] vers sulfate 325 0-30 by mouth 2 it y of mg (65 mg 00:00: (two) [place] iron) 00 times Medical tablet daily. Branch hydrocodone 2010-05 Yes 1{tbl} Take 1-2 [facility] -acetaminop 0-30 Tabs by ity o f hen (NORCO 00:00: mouth [place] 5) 5-325 mg 00 every 6 Medic al tablet (six) Branch hours as needed for Pain. Not to be administer ed at the same time as [place] 10 if ordered. For patients < 12 years recommend do not exceed 5 doses or 2.6 gm in 24 hours totals for all acetaminop hen containing products. For adults with normal hepatic function recommend do not exceed 4 grams in 24 hours for all acetaminop hen containing products. 2010-05 Yes 1{tbl} Take 1 Tab U nivers vitamin 0-30 by mouth ity of w/FA 00:00: daily. [place] ( 00 Medical RX OR Branch GENERIC EQUIVALENT) tablet docusate 2010-05 Yes 240mg Take 1 Cap Un frances calcium 0-30 by mouth ity of (SURFAK) 00:00: once daily [place] as 240 mg 00 as needed Medical capsule for Branch Constipati on. ferrous 2010-05 Yes 325mg Take 1 Tab [facility] vers sulfate 325 0-30 by mouth 2 it y of mg (65 mg 00:00: (two) [place] iron) 00 times Medical tablet daily. Branch hydrocodone 2010-05 Yes 1{tbl} Take 1-2 [facility] -acetaminop 0-30 Tabs by ity o f hen (NORCO 00:00: mouth [place] 5) 5-325 mg 00 every 6 Medic al tablet (six) Branch hours as needed for Pain. Not to be administer ed at the same time as [place] 10 if ordered. For patients < 12 years recommend do not exceed 5 doses or 2.6 gm in 24 hours totals for all acetaminop hen containing products. For adults with normal hepatic function recommend do not exceed 4 grams in 24 hours for all acetaminop hen containing products. 2010-05 Yes 1{tbl} Take 1 Tab U nivers vitamin 0-30 by mouth ity of w/FA 00:00: daily. [place] ( 00 Medical RX OR Branch GENERIC EQUIVALENT) tablet docusate 2010-05 Yes 240mg Take 1 Cap Un fr[facility] calcium 0-30 by mouth ity of (SURFAK) 00:00: once daily [place] as 240 mg 00 as needed Medical capsule for Branch Constipati on. ferrous 2010-05 Yes 325mg Take 1 Tab [facility] vers sulfate 325 0-30 by mouth 2 it y of mg (65 mg 00:00: (two) [place] iron) 00 times Medical tablet daily. Branch hydrocodone 2010-05 Yes 1{tbl} Take 1-2 Univers -acetaminop 0-30 Tabs by ity o f hen (NORCO 00:00: mouth [place] 5) 5-325 mg 00 every 6 Medic al tablet (six) Branch hours as needed for Pain. Not to be administer ed at the same time as Olin 10 if ordered. For patients < 12 years recommend do not exceed 5 doses or 2.6 gm in 24 hours totals for all acetaminop hen containing products. For adults with normal hepatic function recommend do not exceed 4 grams in 24 hours for all acetaminop hen containing products. 2010-05 Yes 1{tbl} Take 1 Tab U nivers vitamin 0-30 by mouth ity of w/FA 00:00: daily. [place] ( 00 Medical RX OR Branch GENERIC EQUIVALENT) tablet 2010-05 Yes 1{tbl} Take 1 Tab U nivers vitamin 0-30 by mouth ity of w/FA 00:00: daily. [place] ( 00 Medical RX OR Branch GENERIC EQUIVALENT) tablet docusate 2010-05 Yes 240mg Take 1 Cap Un frances calcium 0-30 by mouth ity of (SURFAK) 00:00: once daily [place] as 240 mg 00 as needed Medical capsule for Branch Constipati on. ferrous 2010-05 Yes 325mg Take 1 Tab Uni vers sulfate 325 0-30 by mouth 2 it y of mg (65 mg 00:00: (two) [place] iron) 00 times Medical tablet daily. Branch hydrocodone 2010-05 Yes 1{tbl} Take 1-2 Univers -acetaminop 0-30 Tabs by ity o f hen (NORCO 00:00: mouth [place] 5) 5-325 mg 00 every 6 Medic al tablet (six) Branch hours as needed for Pain. Not to be administer ed at the same time as Olin 10 if ordered. For patients < 12 years recommend do not exceed 5 doses or 2.6 gm in 24 hours totals for all acetaminop hen containing products. For adults with normal hepatic function recommend do not exceed 4 grams in 24 hours for all acetaminop hen containing products. docusate 2010-05 Yes 240mg Take 1 Cap Un frances calcium 0-30 by mouth ity of (SURFAK) 00:00: once daily [place] as 240 mg 00 as needed Medical capsule for Branch Constipati on. ferrous 2010-05 Yes 325mg Take 1 Tab Uni vers sulfate 325 0-30 by mouth 2 it y of mg (65 mg 00:00: (two) [place] iron) 00 times Medical tablet daily. Branch hydrocodone 2010-05 Yes 1{tbl} Take 1-2 Univers -acetaminop 0-30 Tabs by ity o f hen (NORCO 00:00: mouth [place] 5) 5-325 mg 00 every 6 Medic al tablet (six) Branch hours as needed for Pain. Not to be administer ed at the same time as Olin 10 if ordered. For patients < 12 years recommend do not exceed 5 doses or 2.6 gm in 24 hours totals for all acetaminop hen containing products. For adults with normal hepatic function recommend do not exceed 4 grams in 24 hours for all acetaminop hen containing products. 2010-05 Yes 1{tbl} Take 1 Tab U nivers vitamin 0-30 by mouth ity of w/FA 00:00: daily. [place] ( 00 Medical RX OR Branch GENERIC EQUIVALENT) tablet docusate 2010-05 Yes 240mg Take 1 Cap Un frances calcium 0-30 by mouth ity of (SURFAK) 00:00: once daily [place] as 240 mg 00 as needed Medical capsule for Branch Constipati on. ferrous 2010-05 Yes 325mg Take 1 Tab Uni vers sulfate 325 0-30 by mouth 2 it y of mg (65 mg 00:00: (two) [place] iron) 00 times Medical tablet daily. Branch hydrocodone 2010-05 Yes 1{tbl} Take 1-2 Univers -acetaminop 0-30 Tabs by ity o f hen (NORCO 00:00: mouth [place] 5) 5-325 mg 00 every 6 Medic al tablet (six) Branch hours as needed for Pain. Not to be administer ed at the same time as Olin 10 if ordered. For patients < 12 years recommend do not exceed 5 doses or 2.6 gm in 24 hours totals for all acetaminop hen containing products. For adults with normal hepatic function recommend do not exceed 4 grams in 24 hours for all acetaminop hen containing products. 2010-05 Yes 1{tbl} Take 1 Tab U nivers vitamin 0-30 by mouth ity of w/FA 00:00: daily. [place] ( 00 Medical RX OR Branch GENERIC EQUIVALENT) tablet docusate 2010-05 Yes 240mg Take 1 Cap Un frances calcium 0-30 by mouth ity of (SURFAK) 00:00: once daily [place] as 240 mg 00 as needed Medical capsule for Branch Constipati on. ferrous 2010-05 Yes 325mg Take 1 Tab Uni vers sulfate 325 0-30 by mouth 2 it y of mg (65 mg 00:00: (two) [place] iron) 00 times Medical tablet daily. Branch hydrocodone 2010-05 Yes 1{tbl} Take 1-2 Univers -acetaminop 0-30 Tabs by ity o f hen (NORCO 00:00: mouth [place] 5) 5-325 mg 00 every 6 Medic al tablet (six) Branch hours as needed for Pain. Not to be administer ed at the same time as Olin 10 if ordered. For patients < 12 years recommend do not exceed 5 doses or 2.6 gm in 24 hours totals for all acetaminop hen containing products. For adults with normal hepatic function recommend do not exceed 4 grams in 24 hours for all acetaminop hen containing products. 2010-05 Yes 1{tbl} Take 1 Tab U nivers vitamin 0-30 by mouth ity of w/FA 00:00: daily. [place] ( 00 Medical RX OR Branch GENERIC EQUIVALENT) tablet docusate 2010-05 Yes 240mg Take 1 Cap Un frances calcium 0-30 by mouth ity of (SURFAK) 00:00: once daily [place] as 240 mg 00 as needed Medical capsule for Branch Constipati on. ferrous 2010-05 Yes 325mg Take 1 Tab Uni vers sulfate 325 0-30 by mouth 2 it y of mg (65 mg 00:00: (two) [place] iron) 00 times Medical tablet daily. Branch 2010-05 Yes 1{tbl} Take 1 Tab U nivers vitamin 0-30 by mouth ity of w/FA 00:00: daily. [place] ( 00 Medical RX OR Branch GENERIC EQUIVALENT) tablet docusate 2010-05 Yes 240mg Take 1 Cap Un frances calcium 0-30 by mouth ity of (SURFAK) 00:00: once daily [place] as 240 mg 00 as needed Medical capsule for Branch Constipati on. ferrous 2010-05 Yes 325mg Take 1 Tab Uni vers sulfate 325 0-30 by mouth 2 it y of mg (65 mg 00:00: (two) [place] iron) 00 times Medical tablet daily. Branch hydrocodone 2010-05 Yes 1{tbl} Take 1-2 Univers -acetaminop 0-30 Tabs by ity o f hen (NORCO 00:00: mouth [place] 5) 5-325 mg 00 every 6 Medic al tablet (six) Branch hours as needed for Pain. Not to be administer ed at the same time as Olin 10 if ordered. For patients < 12 years recommend do not exceed 5 doses or 2.6 gm in 24 hours totals for all acetaminop hen containing products. For adults with normal hepatic function recommend do not exceed 4 grams in 24 hours for all acetaminop hen containing products. hydrocodone 2010-05 Yes 1{tbl} Take 1-2 Univers -acetaminop 0-30 Tabs by ity o f hen (NORCO 00:00: mouth [place] 5) 5-325 mg 00 every 6 Medic al tablet (six) Branch hours as needed for Pain. Not to be administer ed at the same time as Olin 10 if ordered. For patients < 12 years recommend do not exceed 5 doses or 2.6 gm in 24 hours totals for all acetaminop hen containing products. For adults with normal hepatic function recommend do not exceed 4 grams in 24 hours for all acetaminop hen containing products. 2010-05 Yes 1{tbl} Take 1 Tab U nivers vitamin 0-30 by mouth ity of w/FA 00:00: daily. [place] ( 00 Medical RX OR Branch GENERIC EQUIVALENT) tablet docusate 2010-05 Yes 240mg Take 1 Cap Un frances calcium 0-30 by mouth ity of (SURFAK) 00:00: once daily [place] as 240 mg 00 as needed Medical capsule for Branch Constipati on. ferrous 2010-05 Yes 325mg Take 1 Tab Uni vers sulfate 325 0-30 by mouth 2 it y of mg (65 mg 00:00: (two) [place] iron) 00 times Medical tablet daily. Branch hydrocodone 2010-05 Yes 1{tbl} Take 1-2 Univers -acetaminop 0-30 Tabs by ity o f hen (NORCO 00:00: mouth [place] 5) 5-325 mg 00 every 6 Medic al tablet (six) Branch hours as needed for Pain. Not to be administer ed at the same time as Olin 10 if ordered. For patients < 12 years recommend do not exceed 5 doses or 2.6 gm in 24 hours totals for all acetaminop hen containing products. For adults with normal hepatic function recommend do not exceed 4 grams in 24 hours for all acetaminop hen containing products. Immunizations Ordered Filled Immunization Date Status Comments [facility] e Immunization Name Name Td 2017-06-26 Completed University of 00:00:00 [facility] Td 2017-06-26 Completed University of 00:00:00 [facility] Td 2017-06-26 Completed University of 00:00:00 [facility] Td 2017-06-26 Completed University of 00:00:00 [facility] Td 2017-06-26 Completed University of 00:00:00 [facility] Td 2017-06-26 Completed University of 00:00:00 [facility] Td 2017-06-26 Completed University of 00:00:00 [facility] Td 2017-06-26 Completed University of 00:00:00 [facility] Td 2017-06-26 Completed University of 00:00:00 [facility] Td 2017-06-26 Completed University of 00:00:00 [facility] Td 2017-06-26 Completed University of 00:00:00 [facility] Td 2017-06-26 Completed University of 00:00:00 [facility] MMR 2011-03-20 Completed University of 00:00:00 [facility] MMR 2011-03-20 Completed University of 00:00:00 [facility] MMR 2011-03-20 Completed University of 00:00:00 [facility] MMR 2011-03-20 Completed University of 00:00:00 [facility] MMR 2011-03-20 Completed University of 00:00:00 [facility] MMR 2011-03-20 Completed University of 00:00:00 [facility] MMR 2011-03-20 Completed University of 00:00:00 [place] [facility] MMR 2011-03-20 Completed University of 00:00:00 [place] [facility] MMR 2011-03-20 Completed University of 00:00:00 [place] [facility] MMR 2011-03-20 Completed University of 00:00:00 [place] [facility] MMR 2011-03-20 Completed University of 00:00:00 [place] [facility] MMR 2011-03-20 Completed University of 00:00:00 [facility] Vital Signs Vital Name Observation Time Observation Value Comments Source Systolic blood 2021-10-06 09:52:31 138 mm[Hg] Univer sity of pressure [place] [facility] Diastolic blood 2021-10-06 09:52:31 99 mm[Hg] Unive rsity of pressure [place] [facility] Heart rate 2021-10-06 09:52:31 78 /min Universi ty of [place] [facility] Respiratory rate 2021-10-06 09:52:31 18 /min Univ ersity of [place] [facility] Oxygen saturation in 2021-10-06 09:52:31 100 /min University of Arterial blood by [place] [facility] yossi Pulse oximetry Branch Body temperature 2021-10-06 07:58:00 37.33 Merlyn Univ ersity of [place] [facility] Body height 2021-10-06 07:58:00 170.2 cm Universi ty [facility] Body weight 2021-10-06 07:58:00 124.966 kg [facility] [place] BMI 2021-10-06 07:58:00 43.15 kg/m2 Universi ty [facility] Branch Systolic blood 2021-08-16 04:09:45 139 mm[Hg] Univer sity of pressure [place] [facility] Diastolic blood 2021-08-16 04:09:45 76 mm[Hg] Unive rsity of pressure [place] [facility] Heart rate 2021-08-16 04:00:00 97 /min Universi ty of [place] [facility] Respiratory rate 2021-08-16 04:00:00 20 /min Univ ersity of [place] [facility] Oxygen saturation in 2021-08-16 04:00:00 99 /min University of Arterial blood by [employer] yossi Pulse oximetry Branch Body temperature 2021-08-16 02:37:00 37 Merlyn Univ ersity of [place] [facility] Body height 2021-08-16 02:37:00 170.2 cm Universi ty of [place] [facility] Body weight 2021-08-16 02:37:00 117.935 kg Universi ty of [place] [facility] BMI 2021-08-16 02:37:00 40.72 kg/m2 Universi ty of [place] [facility] Systolic blood 2021-07-18 05:50:00 119 mm[Hg] Univer sity of pressure [place] [facility] Diastolic blood 2021-07-18 05:50:00 78 mm[Hg] Unive rsity of pressure [place] [facility] Heart rate 2021-07-18 05:50:00 77 /min Universi ty of [place] [facility] Respiratory rate 2021-07-18 05:50:00 20 /min Univ ersity of [place] [facility] Oxygen saturation in 2021-07-18 05:50:00 97 /min University of Arterial blood by [place] [facility] yossi Pulse oximetry Branch Body temperature 2021-07-18 05:04:00 36.5 Merlyn Univ ersity of [place] [facility] Body height 2021-07-18 05:04:00 170.2 cm Universi ty of [place] [facility] Body weight 2021-07-18 05:04:00 117.935 kg Universi ty [facility] [place] [facility] BMI 2021-07-18 05:04:00 40.72 kg/m2 Universi ty [facility] [place] [facility] Heart rate 2021-06-03 07:48:00 87 /min Universi ty [facility] [place] [facility] Body temperature 2021-06-03 07:48:00 36.5 Merlyn Univ ersity [facility] [place] [facility] Respiratory rate 2021-06-03 07:48:00 16 /min Univ ersity of [place] [facility] Oxygen saturation in 2021-06-03 07:48:00 100 /min University of Arterial blood by [place] [facility] yossi Pulse oximetry Branch Systolic blood 2021-06-03 07:10:46 142 mm[Hg] Univer sity of pressure [place] [facility] Diastolic blood 2021-06-03 07:10:46 95 mm[Hg] Unive rsity of pressure [place] [facility] Body height 2021-06-03 05:37:00 170.2 cm Universi ty of [place] [facility] Body weight 2021-06-03 05:37:00 117.935 kg Universi ty of [place] [facility] BMI 2021-06-03 05:37:00 40.72 kg/m2 Universi ty [facility] [place] [facility] Systolic blood 2021-05-29 08:00:00 135 mm[Hg] Univer sity of pressure [place] [facility] Diastolic blood 2021-05-29 08:00:00 105 mm[Hg] Unive rsity of pressure [place] [facility] Heart rate 2021-05-29 08:00:00 59 /min Universi ty of [place] [facility] Oxygen saturation in 2021-05-29 08:00:00 98 /min University of Arterial blood by [place] [facility] yossi Pulse oximetry Branch Body temperature 2021-05-29 04:41:00 37 Merlyn Univ ersity [facility] [place] [facility] Respiratory rate 2021-05-29 04:41:00 18 /min Univ ersity of [place] [facility] Body height 2021-05-29 04:41:00 170.2 cm Universi ty of [place] [facility] Body weight 2021-05-29 04:41:00 117.935 kg Universi ty of [place] [facility] BMI 2021-05-29 04:41:00 40.72 kg/m2 Universi ty [facility] [place] [facility] Systolic blood 2021-04-14 15:15:00 146 mm[Hg] Univer sity of pressure [place] [facility] Diastolic blood 2021-04-14 15:15:00 80 mm[Hg] Unive rsity of pressure [place] [facility] Heart rate 2021-04-14 15:15:00 64 /min Universi ty of [place] [facility] Body temperature 2021-04-14 15:15:00 37.22 Merlyn Univ ersity [facility] [place] [facility] Respiratory rate 2021-04-14 15:15:00 18 /min Univ ersity of [place] [facility] Oxygen saturation in 2021-04-14 15:15:00 100 /min University of Arterial blood by [facility] [place] [facility] yossi Pulse oximetry Branch Body weight 2021-04-14 15:11:00 117.935 kg Universi ty of [place] [facility] BMI 2021-04-14 15:11:00 40.72 kg/m2 Universi ty of [place] [facility] Systolic blood 2021-03-21 20:15:00 143 mm[Hg] Univer sity of pressure [place] [facility] Diastolic blood 2021-03-21 20:15:00 92 mm[Hg] Unive rsity of pressure [place] [facility] Heart rate 2021-03-21 20:15:00 93 /min [facility]i ty [facility] [place] [facility] [place] Body temperature 2021-03-21 20:15:00 36.94 Merlyn [facility] ersity of [facility] Respiratory rate 2021-03-21 20:15:00 14 /min Univ ersity of [place] [facility] Body height 2021-03-21 20:15:00 170.2 cm Universi ty of [facility] Body weight 2021-03-21 20:15:00 117.935 kg Universi ty of [facility] BMI 2021-03-21 20:15:00 40.72 kg/m2 Universi ty of [facility] Oxygen saturation in 2021-03-21 20:15:00 99 /min University of Arterial blood by [facility] Pulse oximetry Branch Systolic blood 2021-01-14 19:58:00 140 mm[Hg] [facility] Diastolic blood 2021-01-14 19:58:00 72 mm[facility]Hg] [facility] 2021-01-14 19:58:00 68 /min Universi ty of [facility] Respiratory rate 2021-01-14 19:58:00 18 /min [facility] Oxygen saturation in 2021-01-14 19:58:00 100 /min University of Arterial blood by [facility] Pulse oximetry Branch Body temperature 2021-01-14 15:11:00 37.17 Merlyn [facility] height 2021-01-14 15:11:00 170.2 cm [facility]i ty [facility] [place] [facility] [place] Body weight 2021-01-14 15:11:00 117.935 kg Universi ty of [facility] BMI 2021-01-14 15:11:00 40.72 kg/m2 [facility] Procedures Procedure Date / Time Performed Performing Clinician Sour e POCT TEST 2021-10-06 08:40:00 Gissell Lewis [facility] COMP. METABOLIC PANEL 2021-10-06 08:26:00 Gissell Lewis [facility] ([id number]) [facility] CBC WITH DIFF 2021-10-06 08:26:00 Gissell Lewis [place] o f [facility] URINALYSIS 2021-10-06 08:26:00 Gissell Lewis o f [place] [facility] [place] NOTICE OF PRIVACY 2021-10-06 07:33:13 Doctor Unassigned, No Univ [facility]ity of [place] PRACTICES Name Medical Branch CONSENT/REFUSAL FOR 2021-10-06 07:32:46 Doctor Unassigned, No Un i[facility]ity of [place] DIAGNOSIS AND Name Medical Branch TREATMENT RAPID INFLUENZA A/B 2021-08-16 03:06:00 Erum Gar [facility] Medical Branch COVID-19 (ID NOW RAPID 2021-08-16 03:06:00 Erum Gar [facility] TESTING) Medical Branch CONSENT/REFUSAL FOR 2021-08-16 02:26:53 Doctor Unassigned, No Un [facility] [place] DIAGNOSIS AND Name Medical Branch TREATMENT CONSENT/REFUSAL FOR 2021-07-18 04:49:28 Doctor Unassigned, No Un [facility] [place] DIAGNOSIS AND Name Medical Branch TREATMENT CONSENT/REFUSAL FOR 2021-06-03 05:21:50 Doctor Unassigned, No Un [facility] [place] DIAGNOSIS AND Name Medical Branch TREATMENT XR CHEST 1 VW 2021-05-29 07:30:11 Julee Nieves [facility] [place] COVID-19 (ID NOW RAPID 2021-05-29 07:18:00 Julee Nieves [facility] TESTING) Medical Branch CONSENT/REFUSAL FOR 2021-05-29 04:37:04 Doctor Unassigned, No Un [facility] [place] DIAGNOSIS AND Name Medical Branch TREATMENT URINALYSIS 2021-04-14 15:17:00 Erum Gar o [facility] RAPID STREP SCREEN FOR 2021-04-14 15:17:00 Erum Gar [facility] GROUP A Medical Branch RAPID INFLUENZA A/B 2021-04-14 15:17:00 Erum Gar [facility] POCT TEST 2021-04-14 15:17:00 Erum Gar [facility] [place] COVID-19 (ID NOW RAPID 2021-04-14 15:17:00 Erum Gar [facility] TEST[facility]) Medical Branch CONSENT/REFUSAL FOR 2021-04-14 15:06:29 Doctor Unassigned, No Un [facility] [place] DIAGNOSIS AND Name Medical Branch TREATMENT CONSENT/REFUSAL FOR 2021-03-21 20:05:43 [facility], [facility] Branch TREATMENT LIPASE 2021-01-14 16:36:00 Douglas Antunez [facility] COMP. METABOLIC PANEL 2021-01-14 16:36:00 Douglas Antunez [facility] ([id number]) [facility] [place] CBC WITH DIFF 2021-01-14 16:36:00 Douglas Antunez [facility] URINALYSIS 2021-01-14 16:36:00 Douglas Antunez [facility] POCT TEST 2021-01-14 16:32:00 Douglas Antunez [facility] COVID-19 (ID NOW RAPID 2021-01-14 15:23:00 Douglas Antunez [facility] TESTING) [facility] [place] NOTICE OF PRIVACY 2021-01-14 15:06:06 Doctor Unassigned, No [facility] PRACTICES Name [facility] CONSENT/REFUSAL FOR 2021-01-14 15:05:42 Doctor Unassigned, No [facility] AND Name [facility] TREATMENT Encounters Start End Encounter Admission Attending Care Care Encounter Source Date/Time Date/Time Type Type Clinicians Facility Department ID 2021-10-06 2021-10-06 [facility] [id number] Univers 03:02:00 05:56:00 GISSELL barajas [facility] 2021-10-06 2021-10-06 [facility] [id number] Univers 03:02:00 05:56:00 Gissell MCGILL [id number] i ty of [place] [id number] [facility] [id number] [facility] 084 Branch 2021-10-06 2021-10-06 Orders Doctor VASQUEZ [id number] Univers 00:00:00 00:00:00 Only Unassigned, LISA [id number] ity of [place] [facility] [id number] Benrardino [id number] [address] 2021-08-15 2021-08-15 Emergency X [facility] ERT [id number] Univers 21:40:00 23:28:00 ERUM barajas [facility] 2021-08-15 2021-08-15 Emergency [facility] [id number] Univers 21:40:00 23:28:00 Erum MCGILL [id number] i ty of [place] [id number] [facility] [id number] [address] 2021-07-17 2021-07-17 Emergency X Karsten BUCHANAN [facility] ERT [id number] Univers 23:06:00 23:53:00 ity [facility] 2021-07-17 2021-07-[address] [facility] [id number] Univers 23:06:00 23:53:00 Tra MCGILL [id number] i ty of [place] [address]7.[address] [place] [id number] 2021-06-02 2021-06-03 [facility] [id number] Univers 23:24:00 01:58:00 JOSEPH barajas [facility] 2021-06-02 2021-06-03 Emergency [facility] [id number] Univers 23:24:00 01:58:00 Joseph MCGILL [id number] i ty of [place] [address] [place] [id number] 2021-05-28 2021-05-29 [facility] [id number] Univers 22:49:00 02:26:00 JULEE itjana [facility] 2021-05-28 2021-05-29 Emergency [facility] [id number] Univers 22:49:00 02:26:00 Julee Pittman NANO [id number] ity [facility] [id number] [facility] [id number] [address] 2021-04-14 2021-04-14 Emergency X , [facility] ERT [id number] Univers 09:18:00 10:52:00 ERUM itjana [facility] 2021-04-14 2021-04-14 Emergency Gar, [facility] [id number] Univers 09:18:00 10:52:00 Erum MCGILL [id number] i ty of [place] 4.2.7.2.6 [facility] [id number] [address] 2021-03-21 2021-03-21 Emergency X DEWAYNE, [facility] ERT [id number] Univers 15:16:00 16:51:00 ity of [facility] 2021-03-21 2021-03-21 Emergency Dewayne, [facility] [id number] Univers 15:16:00 16:51:00 Tra MCGILL [id number] i ty of [place] [id number] [facility] [id number] [address] 2021-01-14 2021-01-14 Emergency X TULIO, [facility] ERT [id number] Univers 10:12:00 14:59:00 DOUGLAS ity [facility] 2021-01-14 2021-01-14 Emergency [place], [facility] [id number] Univers 10:12:00 14:59:00 Douglas Mcgill [id number] i ty of [place] [id number] [facility] [id number] [address] 2021-01-14 2021-01-14 Orders Doctor CHRISTINA [id number] Univers 00:00:00 00:00:00 Only Unassigned, LISA [id number] ity of [place] [facility] [id number] [facility] [id number] [address] Results Test Description Test Time Test Comments Results Result Comments Source COMP. METABOLIC PANEL (81585) 2021-10-06 08:55:46 Test Item Value Reference Range Interpretation Comme nts NA (test code = 3693565263) 137 mmol/L 135-145 K (test code = 6528973940) 3.8 mmol/L 3.5-5.0 CL (test code = 7170624632) 105 mmol/L 98-108 CO2 TOTAL (test code = 2780613806) 24 mmol/L 23-31 AGAP (test code = 2524779631) 2-16 BUN (test code = 5121887573) 6 mg/dL 7-23 L GLUCOSE (test code = 1800932597) 103 mg/dL 70-110 CREATININE (test code = 0.87 mg/dL 0.50-1.04 4267003060) TOTAL BILI (test code = 0.6 mg/dL 0.1-1.1 8234375006) CALCIUM (test code = 1708803527) 9.1 mg/dL 8.6-10.6 T PROTEIN (test code = 3635592077) 7.2 g/dL 6.3-8.2 ALBUMIN (test code = 7750720237) 4.1 g/dL 3.5-5.0 ALK PHOS (test code = 6814612648) 64 U/L 34-122 ALTv (test code = 1742-6) 17 U/L 5-35 AST(SGOT) (test code = 1533144781) 22 U/L 13-40 eGFR (test code = 2295393314) mL/min/1.73m2 OMER (test code = OMER) Association of Glomerular Filtration Rate (GFR) and Staging of Kidney Disease* + +-------- + ------+| GFR (mL/min/1.73 m2) ?| With Kidney Damage ?| ?Without Kidney Damage+ +-- + +| ?>90 ?| ?Stage one ?| ? Normal ?+ +------- + -------+| ?60-89 ?| ?Stage two ?| ? Decreased GFR ? + +-------- + ------+| ?30-59 ?| ?Stage three ?| ? Stage three ? + +-------- + ------+| ?15-29 ?| ?Stage four ? | ? Stage four ?+ +------- + -------+| ?<15 (or dialysis) ? ?| ?Stage five ? | ? Stage five ?+ +------- + -------+ *Each stage assumes the associated GFR level has been in effect for at least three months. ?Stages 1 to 5, with or without kidney disease, indicate chronic kidney disease. Notes: Determination of stages one and two (with eGFR >59mL/min/1.73 m2) requires estimation of kidney damage for at least three months as defined by structural or functional abnormalities of the kidney, manifested by either:Pathological abnormalities or Markers of kidney damage (including abnormalities in the composition of the blood or urine or abnormalities in imaging tests). Lab Interpretation (test code = Abnormal 08478-3) [facility] WITH [id number] 08:40:06 Test Item Value Reference Range Interpretation Comments WBC (test code = See_Comment [Automated 3890-2) message] The sy stem which generated this result transmitted reference range : 4.30 - 11.10 10*3/?L. The reference range was not used to interpret this result as normal/abnormal . RBC (test code = See_Comment [Automated 789-8) message] The sy stem which generated this result transmitted reference range : 3.93 - 5.25 10*6/?L. The reference range was not used to interpret this result as normal/abnormal . HGB (test code = 10.8 g/dL 11.6-15.0 L 718-7) HCT (test code = 35.0 % 35.7-45.2 L 4544-3) MCV (test code = 80.1 fL 80.6-95.5 L 787-2) MCH (test code = 24.7 pg 25.9-32.8 L 785-6) MCHC (test code = 30.9 g/dL 31.6-35.1 L 786-4) RDW-SD (test code = 46.4 fL 39.0-49.9 30270-4) RDW-CV (test code = 16.0 % 12.0-15.5 H 788-0) PLT (test code = See_Comment [Automated 777-3) message] The sy stem which generated this result transmitted reference range : 166 - 358 10*3/ ?L. The reference r maryam was not used to interpret this result as normal/abnormal . MPV (test code = 10.8 fL 9.5-12.9 72442-9) NRBC/100 WBC (test See_Comment [Automat ed code = 5635784981) message] The system which generated this result transmitted reference range : 0.0 - 10.0 /100 WBCs. The refer ence range was not u sed to interpret th is result as normal/abnormal . NRBC x10^3 (test code <0.01 See_Comment [Auto mated = 3173191221) message] The s ystem which generated this result transmitted reference range : 10*3/?L. The reference range was not used to interpret this result as normal/abnormal . GRAN MAT (NEUT) % 43.4 % (test code = 770-8) IMM GRAN % (test code 0.20 % = 6915750424) LYMPH % (test code = 31.5 % 736-9) MONO % (test code = 15.8 % 5905-5) EOS % (test code = 8.3 % 713-8) BASO % (test code = 0.8 % 706-2) GRAN MAT x10^3(ANC) 2.30 10*3/uL 1.88-7.09 (test code = 4119494032) IMM GRAN x10^3 (test <0.03 0.00-0.06 code = 8539457829) LYMPH x10^3 (test code 1.67 10*3/uL 1.32-3.29 = 731-0) MONO x10^3 (test code 0.84 10*3/uL 0.33-0.92 = 742-7) EOS x10^3 (test code = 0.44 10*3/uL 0.03-0.39 H 711-2) BASO x10^3 (test code 0.04 10*3/uL 0.01-0.07 = 704-7) Lab Interpretation Abnormal (test code = 40201-0) [facility] [id number] 08:40:00 Test Item Value Reference Range Interpretation Comments POCT PREG (test code = 1605) Negative On board controls acceptable with C Present Line (test code = 3574) Lab Interpretation (test code = Normal 32073-2) [facility] [id number] 15:17:00 Test Item Value Reference Range Interpretation Comments POCT PREG (test code = 1605) negative On board controls acceptable with present C Line (test code = 3574) POCT PREG LOT # (test code = 3575) [id number] POCT PREG TEST DATE (test code = 3576) Lab Interpretation (test code = Normal 45361-6) [facility] WITH [id number] 17:23:22 Test Item Value Reference Range Interpretation Comments WBC (test code = See_Comment L [Automated 6690-2) message] The sy stem which generated this result transmitted reference range : 4.30 - 11.10 10*3/?L. The reference range was not used to interpret this result as normal/abnormal . RBC (test code = See_Comment [Automated 789-8) message] The sy stem which generated this result transmitted reference range : 3.93 - 5.25 10*6/?L. The reference range was not used to interpret this result as normal/abnormal . HGB (test code = 11.4 g/dL 11.6-15.0 L 718-7) HCT (test code = 36.6 % 35.7-45.2 4544-3) MCV (test code = 80.3 fL 80.6-95.5 L 787-2) MCH (test code = 25.0 pg 25.9-32.8 L 785-6) MCHC (test code = 31.1 g/dL 31.6-35.1 L 786-4) RDW-SD (test code = 43.8 fL 39.0-49.9 35540-8) RDW-CV (test code = 15.0 % 12.0-15.5 788-0) PLT (test code = See_Comment [Automated 777-3) message] The sy stem which generated this result transmitted reference range : 166 - 358 10*3/ ?L. The reference r maryam was not used to interpret this result as normal/abnormal . MPV (test code = 11.7 fL 9.5-12.9 42185-0) NRBC/100 WBC (test See_Comment [Automat ed code = 1569605976) message] The system which generated this result transmitted reference range : 0.0 - 10.0 /100 WBCs. The refer ence range was not u sed to interpret th is result as normal/abnormal . NRBC x10^3 (test code <0.01 See_Comment [Auto mated = 7516211706) message] The s ystem which generated this result transmitted reference range : 10*3/?L. The reference range was not used to interpret this result as normal/abnormal . GRAN MAT (NEUT) % 42.4 % (test code = 770-8) IMM GRAN % (test code 0.30 % = 3740742994) LYMPH % (test code = 43.0 % 736-9) MONO % (test code = 12.0 % 5905-5) EOS % (test code = 1.5 % 713-8) BASO % (test code = 0.8 % 706-2) GRAN MAT x10^3(ANC) 1.70 10*3/uL 1.88-7.09 L (test code = 0252113987) IMM GRAN x10^3 (test <0.03 0.00-0.06 code = 1657904797) LYMPH x10^3 (test code 1.72 10*3/uL 1.32-3.29 = 731-0) MONO x10^3 (test code 0.48 10*3/uL 0.33-0.92 = 742-7) EOS x10^3 (test code = 0.06 10*3/uL 0.03-0.39 711-2) BASO x10^3 (test code 0.03 10*3/uL 0.01-0.07 = 704-7) REACT LYMPHS (test Rare code = 6409803379) Lab Interpretation Abnormal (test code = 40454-9) [facility] WITH [id number] 17:23:22 Test Item Value Reference Range Interpretation Comments WBC (test code = See_Comment L [Automated 4490-2) message] The sy stem which generated this result transmitted reference range : 4.30 - 11.10 10*3/?L. The reference range was not used to interpret this result as normal/abnormal . RBC (test code = See_Comment [Automated 169-8) message] The sy stem which generated this result transmitted reference range : 3.93 - 5.25 10*6/?L. The reference range was not used to interpret this result as normal/abnormal . HGB (test code = 11.4 g/dL 11.6-15.0 L 718-7) HCT (test code = 36.6 % 35.7-45.2 4544-3) MCV (test code = 80.3 fL 80.6-95.5 L 787-2) MCH (test code = 25.0 pg 25.9-32.8 L 785-6) MCHC (test code = 31.1 g/dL 31.6-35.1 L 786-4) RDW-SD (test code = 43.8 fL 39.0-49.9 84920-7) RDW-CV (test code = 15.0 % 12.0-15.5 788-0) PLT (test code = See_Comment [Automated 777-3) message] The sy stem which generated this result transmitted reference range : 166 - 358 10*3/ ?L. The reference r maryam was not used to interpret this result as normal/abnormal . MPV (test code = 11.7 fL 9.5-12.9 27109-8) NRBC/100 WBC (test See_Comment [Automat ed code = 4241755675) message] The system which generated this result transmitted reference range : 0.0 - 10.0 /100 WBCs. The refer ence range was not u sed to interpret th is result as normal/abnormal . NRBC x10^3 (test code <0.01 See_Comment [Auto mated = 5272845101) message] The s ystem which generated this result transmitted reference range : 10*3/?L. The reference range was not used to interpret this result as normal/abnormal . GRAN MAT (NEUT) % 42.4 % (test code = 770-8) IMM GRAN % (test code 0.30 % = 2976810392) LYMPH % (test code = 43.0 % 736-9) MONO % (test code = 12.0 % 5905-5) EOS % (test code = 1.5 % 713-8) BASO % (test code = 0.8 % 706-2) GRAN MAT x10^3(ANC) 1.70 10*3/uL 1.88-7.09 L (test code = 7392456543) IMM GRAN x10^3 (test <0.03 0.00-0.06 code = 8121665273) LYMPH x10^3 (test code 1.72 10*3/uL 1.32-3.29 = 731-0) MONO x10^3 (test code 0.48 10*3/uL 0.33-0.92 = 742-7) EOS x10^3 (test code = 0.06 10*3/uL 0.03-0.39 711-2) BASO x10^3 (test code 0.03 10*3/uL 0.01-0.07 = 704-7) REACT LYMPHS (test Rare code = 4097907842) Lab Interpretation Abnormal (test code = 16959-2) [facility]. METABOLIC PANEL ([id number])2021-01-14 17:09:16 Test Item Value Reference Range Interpretation Comments NA (test code = 137 mmol/L 135-145 8615226791) K (test code = 3.7 mmol/L 3.5-5.0 6549285561) CL (test code = 103 mmol/L 98-108 3477313867) CO2 TOTAL (test code = 26 mmol/L 23-31 9605408083) AGAP (test code = 2-16 5923693090) BUN (test code = 8 mg/dL 7-23 0511315130) GLUCOSE (test code = 90 mg/dL 70-110 9839241225) CREATININE (test code = 0.83 mg/dL 0.50-1.04 4699578194) TOTAL BILI (test code = 0.4 mg/dL 0.1-1.7 6002228608) CALCIUM (test code = 8.9 mg/dL 8.6-10.6 3288095986) T PROTEIN (test code = 8.5 g/dL 6.3-8.2 H 3048855388) ALBUMIN (test code = 4.7 g/dL 3.5-5.0 4099213929) ALK PHOS (test code = 65 U/L 34-122 6503529639) ALTv (test code = 19 U/L 5-35 1742-6) AST(SGOT) (test code = 28 U/L 13-40 7668247056) eGFR (test code = mL/min/1.73m2 1511703115) OMER (test code = OMER) Association of Glomerular Filtration Rate (GFR) and Staging of Kidney Disease* + --+ --+ ------+| GFR (mL/min/1.73 m2) ?| With Kidney Damage ?| ?Without Kidney Damage+ --------+ --------+ +| ?>90 ?| ?Stage one ?| ? Normal ?+ ---+ ---+ -------+| ?60-89 ?| ?Stage two ?| ? Decreased GFR ? + --+ --+ ------+| ?30-59 ?| ?Stage three ?| ? Stage three ? + --+ --+ ------+| ?15-29 ?| ?Stage four ? | ? Stage four ?+ ---+ ---+ -------+| ?<15 (or dialysis) ? ?| ?Stage five ? | ? Stage five ?+ ---+ ---+ -------+ *Each stage assumes the associated GFR level has been in effect for at least three months. ?Stages 1 to 5, with or without kidney disease, indicate chronic kidney disease. Notes: Determination of stages one and two (with eGFR >59mL/min/1.73 m2) requires estimation of kidney damage for at least three months as defined by structural or functional abnormalities of the kidney, manifested by either:Pathological abnormalities or Markers of kidney damage (including abnormalities in the composition of the blood or urine or abnormalities in imaging tests). Lab Interpretation Abnormal (test code = 32881-7) [facility]. METABOLIC PANEL ([id number])2021-01-14 17:09:16 Test Item Value Reference Range Interpretation Comments NA (test code = 1384465995) 137 mmol/L 135-145 K (test code = 4468522250) 3.7 mmol/L 3.5-5.0 CL (test code = 7240696016) 103 mmol/L 98-108 CO2 TOTAL (test code = 0753325458) 26 mmol/L 23-31 AGAP (test code = 7367586567) 2-16 BUN (test code = 4711036090) 8 mg/dL 7-23 GLUCOSE (test code = 9493723411) 90 mg/dL 70-110 CREATININE (test code = 0.83 mg/dL 0.50-1.04 0013557529) TOTAL BILI (test code = 0.4 mg/dL 0.1-1.6 3600722997) CALCIUM (test code = 7508649634) 8.9 mg/dL 8.6-10.6 T PROTEIN (test code = 4149309125) 8.5 g/dL 6.3-8.2 H ALBUMIN (test code = 2413984996) 4.7 g/dL 3.5-5.0 ALK PHOS (test code = 5825924826) 65 U/L 34-122 ALTv (test code = 1742-6) 19 U/L 5-35 AST(SGOT) (test code = 7726811369) 28 U/L 13-40 eGFR (test code = 5077002906) mL/min/1.73m2 OMER (test code = OMER) Lab Interpretation (test code = Abnormal 32493-8) [facility] Test Item Value Reference Range Interpretation Comments LIPASE (test code = 0839223383) 76 U/L 0-220 Lab Interpretation (test code = Normal 80559-2) [facility] 17:[facility]17 Test Item Value Reference Range Interpretation Comments LIPASE (test code = 5710857128) 76 U/L 0-220 Lab Interpretation (test code = Normal 46959-9) [facility] Test Item Value Reference Range Interpretation Comments APPEARANCE (test code = Cloudy Clear A 8158527646) COLOR (test code = Tasha Yellow A 9030047994) PH (test code = 4.8-8.0 7766713413) SP GRAVITY (test code = 1.003-1.030 H 4242041394) GLU U QUAL (test code = Normal Normal 9393005331) BLOOD (test code = Negative Negative 7056293086) KETONES (test code = 80 mg/dL Negative A 2075266968) PROTEIN (test code = 30 mg/dL Negative A 2887-8) UROBILIN (test code = 2.0 mg/dL Normal A 7746974845) BILIRUBIN (test code = Negative Negative 7523742952) NITRITE (test code = Negative Negative 0779577085) LEUK NICOLE (test code = 75/uL Negative A 3355369937) RBC/HPF (test code = See_Comment H [Autom ated message] 9562014023) The system [employer] generated this result transmit chad reference range : 0 - 3 HPF. The refe rence range was not u sed to interpret th is result as normal/abnormal . WBC/HPF (test code = See_Comment H [Autom ated message] 8692164435) The system [employer] generated this result transmit chad reference range : 0 - 5 HPF. The refe rence range was not u sed to interpret th is result as normal/abnormal . BACTERIA (test code = Few Negative A 1525563907) MUCOUS (test code = Marked Negative LPF A 0050599108) SQ EPITH (test code = HPF 9223429082) Lab Interpretation (test Abnormal code = 75938-4) [facility] Test Item Value Reference Range Interpretation Comments APPEARANCE (test code = Cloudy Clear A 5997922200) COLOR (test code = Tasha Yellow A 2813298863) PH (test code = 4.8-8.0 2621783200) SP GRAVITY (test code = 1.003-1.030 H 3640494565) GLU U QUAL (test code = Normal Normal 7092403073) BLOOD (test code = Negative Negative 1867491922) KETONES (test code = 80 mg/dL Negative A 7846104900) PROTEIN (test code = 30 mg/dL Negative A 2887-8) UROBILIN (test code = 2.0 mg/dL Normal A 9524134820) BILIRUBIN (test code = Negative Negative 8258640328) NITRITE (test code = Negative Negative 2736417141) LEUK NICOLE (test code = 75/uL Negative A 8728822000) RBC/HPF (test code = See_Comment H [Autom ated message] 0359679591) The system [employer] generated this result transmit chad reference range : 0 - 3 HPF. The refe rence range was not u sed to interpret th is result as normal/abnormal . WBC/HPF (test code = See_Comment H [Autom ated message] 8812151794) The system [employer] generated this result transmit chad reference range : 0 - 5 HPF. The refe rence range was not u sed to interpret th is result as normal/abnormal . BACTERIA (test code = Few Negative A 6679860306) MUCOUS (test code = Marked Negative LPF A 4480908067) SQ EPITH (test code = HPF 7697377629) Lab Interpretation (test Abnormal code = 30608-5) [facility] [id number] 16:32:00 Test Item Value Reference Range Interpretation Comments POCT PREG (test code = 1605) negative On board controls acceptable with present C Line (test code = 3574) POCT PREG LOT # (test code = 3575) [id number] POCT PREG TEST DATE (test 05/21/2022 code = 3576) Lab Interpretation (test code = Normal 30337-8) [facility] [id number] 16:32:00 Test Item Value Reference Range Interpretation Comments POCT PREG (test code = 1605) negative On board controls acceptable with present C Line (test code = 3574) POCT PREG LOT # (test code = 3575) [id number] POCT PREG TEST DATE (test 05/21/2022 code = 3576) Lab Interpretation (test code = Normal 22584-4) [facility]ID [facility]2021-01-14 15:46:08 Test Item Value Reference Range Interpretation Comments SARS-CoV-2 Rapid ID NOW Positive Not Detected A (test code = 75955-0) OMER (test code = OMER) ID NOW COVID-19 Assay is an isothermal nucleic acid amplification test intended for the qualitative detection of nucleic acid from SARS-CoV-2 viral RNA in nasopharyngeal (MAID CLEANING COOKING) specimens. It is used under Emergency Use Authorization (EUA) by FDA. The limit of detection (LOD) of the assay is 125 Genome Equivalents/mL. A positive result is indicative of the presence of SARS-CoV-2 RNA. ?Clinical correlation with patient history and other diagnostic information is necessary to determine patient infection status. A negative (Not Detected) result does not preclude SARS-CoV-2 infection. In patients with clinical symptoms and other tests that are consistent with SARS-CoV-2 infection, negative results should be treated as presumptive negative and a new specimen should be tested with alternative PCR molecular test. Invalid: Please collect a new specimen for repeat patient testing if clinically indicated. Lab Interpretation Abnormal (test code = 48508-6) [facility]2021-01-14 15:46:08 Test Item Value Reference Range Interpretation Comments SARS-CoV-2 Rapid ID NOW (test code = Positive Not Detected A 68029-1) OMER (test code = OMER) Lab Interpretation (test code = Abnormal 18793-6) [facility]"
[2021-10-27] MEDS ORDERED: predniSONE 20 MG TAB ONE (13:11)
[2021-10-27] MEDS ORDERED: ALBUTEROL 2.5 MG/3 ML NEB SOL ONE (13:11)
[2021-10-27] MEDS ORDERED: ONDANSETRON 4 MG (ODT) TAB ONE (13:12)
[2021-10-27] MEDS ORDERED: IPRATROPIUM BROM 0.5MG/2.5ML ONE (13:12)
--- NOTE | 2021-10-27 13:39 | RAD REPORT ---
EXAM DESCRIPTION: Gena Single View10/27/2021 1:33 pm CLINICAL HISTORY: sob COMPARISON: none FINDINGS: The lungs appear clear of acute infiltrate. The heart is normal size IMPRESSION: No acute abnormalities displayed
--- NOTE | 2021-10-27 16:07 | EDPHYS ---
Physician Documentation [facility] Name: Elizabeth Walton Age: 30 yrs Sex: Female : 1990 Arrival Date: 10/27/2021 Time: 12:14 Bed 11 Private MD: ED Physician Cooper Jay HPI: 10/27 16:07 This 30 yrs old Black Female presents to ER via Ambulatory with complaints of Nose ms3 Bleed, myalgias. 16:07 The patient presents with a nose bleed, that is apparently anterior, from the left ms3 nare. Onset: The symptoms/episode began/occurred just prior to arrival. Modifying factors: The symptoms are alleviated by nothing. the symptoms are aggravated by nothing. Associated signs and symptoms: Loss of consciousness: the patient experienced no loss of consciousness, Pertinent positives: cough. Severity of symptoms: At their worst the symptoms were moderate in the emergency department the symptoms have resolved. 30-year-old female with no past medical history presents for myalgias nosebleed. Patient states her nose began bleeding on the way to the hospital. Patient states she was recently exposed to COVID. Patient denies alleviating or inciting factors.. 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 - Social history:: Smoking status: Reported history of juuling and/or vaping. ROS: 16:07 Eyes: Negative for injury, pain, redness, and discharge, Neck: Negative for injury, ms3 pain, and swelling, Cardiovascular: Negative for chest pain, and palpitations. 16:07 Abdomen/GI: Negative for abdominal pain, nausea, vomiting, diarrhea, and constipation, Back: Negative for injury and pain, MS/Extremity: Negative for injury and deformity, Skin: Negative for injury, rash, and discoloration. 16:07 Constitutional: Positive for body aches, chills. 16:07 Respiratory: Positive for cough. 16:07 Neuro: Positive for headache. 16:07 All other systems are negative. Exam: 16:07 Constitutional: This is a well developed, well nourished patient who is awake, alert, ms3 and in no acute distress. Head/Face: Normocephalic, atraumatic. Eyes: Pupils equal round and reactive to light, extra-ocular motions intact. Lids and lashes normal. Conjunctiva and sclera are non-icteric and not injected. Periorbital areas with no swelling, redness, or edema. Neck: Trachea midline, no cervical lymphadenopathy. Supple, full range of motion without nuchal rigidity, or vertebral point tenderness. No Meningismus. Chest/axilla: Normal chest wall appearance and motion. Nontender with no deformity. Cardiovascular: Regular rate and rhythm with a normal S1 and S2. No gallops, murmurs, or rubs. Normal PMI, no JVD. No pulse deficits. Respiratory: Lungs have equal breath sounds bilaterally, clear to auscultation and percussion. No rales, rhonchi or wheezes noted. No increased work of breathing, no retractions or nasal flaring. Abdomen/GI: Soft, non-tender, with normal bowel sounds. No distension or tympany. No guarding or rebound. No evidence of tenderness throughout. Skin: Warm, dry with normal turgor. Normal color with no rashes, no lesions, and no evidence of cellulitis. MS/ Extremity: Pulses equal, no cyanosis. Neurovascular intact. Full, normal range of motion. Psych: Awake, alert, with orientation to person, place and time. Behavior, mood, and affect are within normal limits. 16:07 ENT: Nose: clotted blood, in left nare. Vital Signs: 12:23 BP 142 / 82; Pulse 81; Resp 18; Temp 98.8(O); Pulse Ox 100% on R/A; Weight 120.2 kg; ll1 Height 5 ft. 7 in. (170.18 cm); Pain 9/10; 13:17 BP 139 / 84; Pulse 83; Resp 18; Pulse Ox 99% on R/A; ld1 14:42 BP 131 / 81; Pulse 81; Resp 18; Pulse Ox 98% on R/A; ld1 16:15 BP 136 / 80; Pulse 79; Resp 18; Pulse Ox 99% on R/A; ld1 12:23 Body Mass Index 41.50 (120.20 kg, 170.18 cm) ll1 MDM: 12:29 Patient medically screened. ms3 16:07 Differential diagnosis: COVID vs Flu vs Epistaxis. Data reviewed: vital signs, nurses ms3 notes, lab test result(s), and as a result, I will discharge patient. Data interpreted: Pulse oximetry: on room air is 99 %. Interpretation: normal. Counseling: I had a detailed discussion with the patient and/or guardian regarding: the historical points, exam findings, and any diagnostic results supporting the discharge/admit diagnosis, lab results, the need for outpatient follow up, to return to the emergency department if symptoms worsen or persist or if there are any questions or concerns that arise at home. ED course: Discussed labs, physical exam findings with patient. Patient to follow-up with primary care physician in 2 to 3 days. Patient understands and agrees with plan. All questions were answered. Return precautions discussed include worsening symptoms, or any other concerns. On reevaluation patient is alert and oriented x4, in no apparent distress, nontoxic-appearing, speaking full sentences, ambulatory in emergency department.. 10/27 12:32 Order name: Flu; Complete Time: 14:03 ms3 10/27 12:32 Order name: CXR XRAY; Complete Time: 14:03 ms3 10/27 14:26 Order name: SARS-COV-2 RT PCR; Complete Time: 16:00 EDMS Administered Medications: 13:13 Drug: Ondansetron 4 mg Route: PO; ld1 13:13 Drug: Albuterol 2.5 mg Route: Inhalation; ld1 13:13 Drug: Albuterol 2.5 mg Route: Inhalation; ld1 13:13 Drug: Albuterol 2.5 mg Route: Inhalation; ld1 13:13 Drug: AtroVENT (ipratropium) Aerosol 0.5 mg Route: Inhalation; ld1 13:13 Drug: predniSONE 60 mg Route: PO; ld1 Disposition Summary: 10/27/21 16:07 Discharge Ordered Location: Home ms3 Condition: Stable ms3 Diagnosis - COVID 19 ms3 - Cough ms3 - Myalgia ms3 Followup: ms3 - With: Leonard Mckeon, DO - When: 2 - 3 days - Reason: Recheck today's complaints Discharge Instructions: - Discharge Summary Sheet ms3 - COVID-19 ms3 - COVID-19 Frequently Asked Questions ms3 - 10 Things You Can Do to Manage Your COVID-19 Symptoms at Home - [facility] ms3 Forms: - Medication Reconciliation Form ms3 - Work release form ll1 - Thank You Letter ms3 - Antibiotic Education ms3 - Prescription Opioid Use ms3 Signatures: Dispatcher [employer] EDMS Naseem Monson, RN RN ll1 Cooper Jay, DO DO ms3 Ninoska Renteria RN RN ld1 Corrections: (The following items were deleted from the chart) 14:26 12:33 COVID 19 CPL+[id number] ordered. EDMS EDMS
--- NOTE | 2021-10-27 16:07 | ER ---
Nurse's Notes [facility] Name: Elizabeth Walton Age: 30 yrs Sex: Female : 1990 Arrival Date: 10/27/2021 Time: 12:14 Bed 11 Private MD: Diagnosis: COVID 19;Cough;Myalgia Presentation: 10/27 12:23 Chief complaint: Patient states: Abd cramping with N/V and nose bleeding off/on for 2 ll1 days. Coronavirus screen: Vaccine status: Patient reports being unvaccinated. Client denies travel out of the [place] in the last 14 days. headache, nausea, vomiting. Client presents with at least one sign or symptom that may indicate coronavirus-19. Standard/surgical mask placed on the client. Ebola Screen: Patient denies travel to an Ebola-affected area in the 21 days before illness onset. Initial Sepsis Screen: Does the patient meet any 2 criteria? No. Patient's initial sepsis screen is negative. Does the patient have a suspected source of infection? Yes: Other: YOUNG, nasal bleeding. Risk Assessment: Do you want to hurt yourself or someone else? Patient reports no desire to harm self or others. Onset of symptoms was October 26, 2021. 12:23 Method Of Arrival: Ambulatory ll1 12:23 Acuity: BARTOLOME 3 ll1 Triage Assessment: 12:24 General: Appears uncomfortable, Behavior is cooperative, appropriate for age. Pain: ll1 Complains of pain in head Pain currently is 9 out of 10 on a pain scale. Quality of pain is described as aching. EENT: Reports nasal discharge that is bloody. Neuro: Reports headache. Cardiovascular: No deficits noted. Respiratory: No deficits noted. 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 - Social history:: Smoking status: Reported history of juuling and/or vaping. Screenin:17 Abuse screen: Denies threats or abuse. Denies injuries from another. Nutritional ld1 screening: No deficits noted. Tuberculosis screening: No symptoms or risk factors identified. Fall Risk None identified. Assessment: 13:17 General: Appears in no apparent distress. comfortable, Behavior is calm, cooperative, ld1 appropriate for age. Pain: Complains of pain in face. Neuro: Level of Consciousness is awake, alert, obeys commands, Oriented to person, place, time, situation. Cardiovascular: Capillary refill < 3 seconds Patient's skin is warm and dry. Respiratory: Airway is patent Respiratory effort is even, unlabored. GI: Abdomen is round non-distended. : No signs and/or symptoms were reported regarding the genitourinary system. EENT: Reports nose bleed. Derm: No signs and/or symptoms reported regarding the dermatologic system. Musculoskeletal: No signs and/or symptoms reported regarding the musculoskeletal system. Vital Signs: 12:23 BP 142 / 82; Pulse 81; Resp 18; Temp 98.8(O); Pulse Ox 100% on R/A; Weight 120.2 kg; ll1 Height 5 ft. 7 in. (170.18 cm); Pain 9/10; 13:17 BP 139 / 84; Pulse 83; Resp 18; Pulse Ox 99% on R/A; ld1 14:42 BP 131 / 81; Pulse 81; Resp 18; Pulse Ox 98% on R/A; ld1 16:15 BP 136 / 80; Pulse 79; Resp 18; Pulse Ox 99% on R/A; ld1 12:23 Body Mass Index 41.50 (120.20 kg, 170.18 cm) ll1 ED Course: 12:14 Patient arrived in ED. mr 12:15 Arm band placed on Patient placed in an exam room, on a stretcher. ll1 12:17 Ninoska Renteria, RN is Primary Nurse. ld1 12:19 Cooper Jay DO is Attending Physician. ms3 12:24 Triage completed. ll1 13:13 Flu Sent. ld1 13:17 Patient has correct armband on for positive identification. Placed in gown. Bed in low ld1 position. Call light in reach. Side rails up X2. manager monitoring on. Pulse ox on. NIBP on. Door closed. Noise minimized. Warm blanket given. 13:17 No provider procedures requiring assistance completed. Patient did not have IV access ld1 during this emergency room visit. 13:34 CXR XRAY In Process Unspecified. EDMS 15:48 Notified ED physician of a critical lab result(s). covid positive. ss 16:06 Leonard Mckeon DO is Referral Physician. ms3 Administered Medications: 13:13 Drug: Ondansetron 4 mg Route: PO; ld1 13:13 Drug: Albuterol 2.5 mg Route: Inhalation; ld1 13:13 Drug: Albuterol 2.5 mg Route: Inhalation; ld1 13:13 Drug: Albuterol 2.5 mg Route: Inhalation; ld1 13:13 Drug: AtroVENT (ipratropium) Aerosol 0.5 mg Route: Inhalation; ld1 13:13 Drug: predniSONE 60 mg Route: PO; ld1 Medication: 13:17 VIS not applicable for this client. ld1 Outcome: 16:07 Discharge ordered by MD. ms3 16:16 Discharged to home ambulatory. ld1 16:16 Condition: stable 16:16 Discharge instructions given to patient, Instructed on discharge instructions, follow up and referral plans. Demonstrated understanding of instructions, follow-up care. 16:16 Patient left the ED. ld1 Signatures: Dispatcher [employer] EDMS Liz Moctezuma Juliana Aguila, RN RN ss Naseem Monson RN RN ll1 Cooper Jay DO DO ms3 Ninoska Renteria, MAIKEL RN ld1 Corrections: (The following items were deleted from the chart) 14:26 13:13 COVID 19 CPL+ drawn and sent. ld1 EDMS
[2021-10-27 16:20] VITALS: TEMP 98.8
[2021-10-27 16:25] VITALS: BP 136/80; O2SAT 99
== END 2021-10-27 16:16 | disposition home or self-care (01) ==
LOC: ER 12:12
DX: U07.1 COVID-19 (principal); M79.10 Myalgia, unspecified site
CPT/HCPCS: 87804 ×2; 71045; 99285; U0003; J7512